=== PATIENT | male | born 1955 | race Caucasian/White ===

== ENCOUNTER 2018-11-30 14:32 | Emergency (ER) | payer BC, SELFPAY ==
[2018-11-30 14:36] VITALS: BP 147/83; PULSE 92; TEMP 36.6; O2SAT 100
--- NOTE | 2018-11-30 15:12 | ED.GENADUL_ITS ---
Discharge Plan Disposition Patient Disposition: HOME Condition: Stable Discharge Details Chief Complaint: Urinary Clinical Impression: Strain of left inguinal muscle, Strain of groin Primary Care Provider: Mariah Riddle ED Provider: Swati Rodriguez Home Meds and New Rx's Prescriptions: New methocarbamol 750 mg tablet 750 mg PO TID PRN (Reason: muscle spasm) Qty: 10 RF: 0 Continued imipramine HCl 50 mg Tablet 100 mg PO DAILY RF: 0 ibuprofen [Advil] 200 mg Tablet 800 mg PO BID PRNRF: 0 lisinopril 40 mg Tablet 40 mg PO DAILY RF: 0 Statin RF: 0 Discharge Instructions Instructions: Muscle Strain (ED), Groin Strain (ED) Additional Instructions: Alternate Tylenol and Motrin as needed and directed for pain. Alternate ice and heat to the affected area several times daily for 20 minutes at a time. Take the muscle relaxer for pain not relieved with Tylenol or Motrin. Follow-up with your primary care doctor in 3 days for reevaluation. Return immediately to the emergency department with any worsening or concerning symptoms. Discharge Data Discharge Date/Time-TO BE ENTERED AT DEPARTURE: 11/30/18 15:27 Discharge Physician: Swati Rodriguez Medical Decision Making 63-year-old male who presents with left groin pain for the past 4-5 days. Pain worse with movement and when moving from sitting to standing position. 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 He is also been receiving managed care director 2 times weekly for the past 3 weeks for a back injury. He denies fever, nausea, vomiting, abdominal pain, urinary or bowel symptoms, leg pain, swelling or weakness or numbness, rash, chest pain, shortness of breath, recent travel, recent surgery. Assessment of groin area notes a localized area of to have patient within the perineum/left inner groin behind scrotum which appears consistent with likely a groin strain. Scrotum normal to inspection. No left inguinal tenderness or pain. No rash, infection or trauma. Neurovascularly intact. Abdomen soft nontender. Patient instructed to continue NSAIDs, ice, heat and was sent home with muscle relaxers. He is instructed to follow-up with his primary care doctor for reevaluation and return here if worse. HPI General Mode of arrival: ambulatory . Date/Time Provider Initiated Documentation: 11/30/18 14:34 . Limitations to Documentation: no limitations . Information obtained by: patient . HPI Narrative: Pt is a 63yo M who presents to the ED w/ a c/o L groin pain x 4-5 days. Pt states he awoke with the pain when it started and it is worse with movement. Pt states the pain is mainly worse with hip flexion, moving from a sitting to standing position. 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 Pt states he has been taking 4 tabs of advil 2-3 times daily with some relief. He also states that he has been seeing a chiropractor 2-3 times weekly for the past 2 weeks and states he has adjusted his pelvis and recently gave him back exercises to do. He denies fever, nausea, vomiting, abdominal pain, bowel or bladder incontinence, saddle anesthesia, leg pain/weakness/numbness, chest pain, shortness of breath, recent travel, recent surgery, rash or urinary symptoms. Related Data Home Medications Medication Instructions Recorded Confirmed Statin 11/30/18 ibuprofen [Advil] 800 mg PO BID PRN 11/30/18 11/30/18 imipramine HCl 100 mg PO DAILY 11/30/18 11/30/18 lisinopril 40 mg PO DAILY 11/30/18 11/30/18 methocarbamol 750 mg PO TID PRN #10 tab 11/30/18 Previous Rx's Medication Instructions Recorded methocarbamol 750 mg PO TID PRN #10 tab 11/30/18 Allergies Allergy/AdvReac Type Severity Reaction Status Date / Time No Known Allergies Allergy Unverified 11/30/18 14:38 General Stated Complaint: Urinary AMY: 3 Review of Systems Review of Systems All systems reviewed & are unremarkable except as noted in HPI and below Constitutional Reports as per HPI, Denies chills and Denies fever(s) Eyes Denies blurry vision ENT Denies dizziness, Denies sore throat and Denies throat swelling Cardiovascular Denies chest pain and Denies dyspnea Respiratory Denies cough and Denies dyspnea Gastrointestinal Denies abdominal pain, Denies diarrhea and Denies vomiting Genitourinary Denies hematuria and Denies dysuria Musculoskeletal Denies back pain, Denies numbness and Reports other (L groin pain) Integumentary/Breasts Denies lesions and Denies rash Neurologic Denies dizziness, Denies focal weakness and Denies numbness Allergic/Immunologic Denies throat swelling PFS Medical History Anxiety (Chronic) Hypertension (Chronic) Prostate cancer (Chronic) Surgical History History of arthroscopy of knee (Acute) History of facial surgery (Acute) H/O hemorrhoidectomy (Chronic) History of prostatectomy (Chronic) Social History Smoking/Tobacco Use Status: Former Tobacco Use Alcohol Intake: current Alcohol Intake frequency: a few times a week Substance use type: does not use Do you feel safe at home: Yes Do you feel safe in your relationship?: Yes Exam Const General: cooperative, healthy appearing and no acute distress HENMT Head: normal to inspection Face and sinus: normal facial exam Eyes General: appearance normal, both eyes and all related structures EOM: EOM intact bilaterally Neck Neck: normal visual inspection and No submandibular swelling Lymphatic: no lymphadenopathy noted Chest Chest: normal inspection of the chest and no tenderness Resp Effort & Inspection: normal respiratory effort and able to speak in complete sentences Auscultation: clear to auscultation bilaterally Cardio Rate: regular rate Rhythm: regular rhythm GI Inspection: normal to inspection Palpation: soft, not firm, not rigid and nontender Auscultation: normal bowel sounds Male General Exam: Yes normal external exam Back/Spine/Pelvis Thoracic/Lumbar Spine: thoracic and lumbar spine normal to inspection Pelvis: no pain with anterior-posterior compression and other (notable localized tenderness to inner L groin/anterior perineum) Coccyx: other (notable localized tenderness to inner L groin/anterior perineum) Skin General skin exam: no rashes or lesions noted Neuro General: alert, awake, oriented x3, moves all extremities, no meningeal signs and no focal motor deficits Cognition: normal cognition Speech: speech normal Motor: muscle tone normal throughout and strength 5/5 throughout Sensory Exam: no sensory deficits noted Extrem General: normal to inspection, full ROM, normal capillary refill, no calf tenderness bilaterally and no edema Other: No tenderness to palpation of left outer groin within the inguinal region. Patient's tenderness is below and behind the scrotum deep within the inner left groin/perineum. There is a notable area of tenderness to a tendon within this area that is worse with flexion at the hip. Pain in left groin upon moving from sitting to standing position and when ambulating. Psych Appearance: grossly normal Mental Status: mental status grossly normal Speech and Movement: speech and movement normal Affect: normal affect Course Vital Signs Temperature 97.9 F 11/30/18 14:36 Pulse 92 H 11/30/18 14:36 Blood Pressure 147/83 H 11/30/18 14:36 Pulse Oximetry 100 11/30/18 14:36 Temperature 97.9 F 11/30/18 14:36 Temperature Source Skin 11/30/18 14:36 Pulse 92 H 11/30/18 14:36 Blood Pressure 147/83 H 11/30/18 14:36 Blood Pressure Position Sitting 11/30/18 14:36 Pulse Oximetry 100 11/30/18 14:36 Oxygen Delivery Method Room Air 11/30/18 14:36 Oxygen Flow Rate 0 11/30/18 14:36 Pain Level 5 11/30/18 14:36
[2018-11-30 15:25] VITALS: BP 147/83; PULSE 92; RESP 20; TEMP 36.6; O2SAT 100
== END 2018-11-30 15:27 | disposition home or self-care (01) ==
PROVIDERS: Emergency Provider Physician Assistant; PCP Nurse Practitioner
DX: S76.212A Strain of adductor muscle, fascia and tendon of left thigh, initial encounter (principal); X58.XXXA Exposure to other specified factors, initial encounter
CPT/HCPCS: 99283

== ENCOUNTER 2020-04-18 11:31 | Emergency (ER) | payer BC, SELFPAY ==
[2020-04-18 11:36] VITALS: BP 150/74; PULSE 81; RESP 18; TEMP 37.1; O2SAT 98
--- NOTE | 2020-04-18 12:04 | ED.GENADUL_ITS ---
Discharge Plan Disposition Patient Disposition: HOME Condition: Stable Discharge Details Chief Complaint: Orthopedic Clinical Impression: Foreign body finger Primary Care Provider: Mariah Riddle ED Provider: Danitza Lloyd Home Meds and New Rx's Prescriptions: New cephalexin 500 mg tablet 500 mg PO BID 5 Days Qty: 10 RF: 0 No Action imipramine HCl 50 mg Tablet 100 mg PO DAILY RF: 0 ibuprofen [Advil] 200 mg Tablet 800 mg PO BID PRNRF: 0 lisinopril 40 mg Tablet 40 mg PO DAILY RF: 0 Statin RF: 0 Discharge Instructions Instructions: Soft Tissue Foreign Body (ED), Puncture Wound (ED) Additional Instructions: A wooden foreign body sliver was removed from your right little finger. I ex pect that it was fully removed however there is a chance that small little pieces of wood are still embedded in the soft tissues. Those will eventually work themselves out. Wash puncture wounds with running soap and water daily keep clean and dry. Take antibiotic as directed. Return for any increased redness, red streaks up your hand, fever or drainage or any concerns. Numbing medicine will wear off a couple hours. Please take Tylenol or Ibuprofen with food every 4-6 hours as needed for pain and swelling. Follow up with primary care provider in 3-5 days. Return to ED sooner if any worsening or concerns. Increase oral fluids. Referrals: Mariah Riddle [Primary Care Provider] - Medical Decision Making 64-year-old male presents to the ER chief complaint of foreign body embedded in his right fifth digit. This occurred approximate 1 hour prior to arrival while patient was working on some molding. He has a splinter noted sticking of the right little finger. There is a small venous bleed which is controlled with pressure. He does report increased tenderness. Unknown last tetanus shot. He has a past medical history of hypertension. Imaging obtained to rule out radiopaque foreign body. There is a small shadow noted. Patient received Tdap injection due to unknown tetanus status. Area was anesthetized locally with 1% lidocaine, patient tolerated well. Foreign body was removed with hemostat, suspected full removal of splinter. MICHELL wound and silver measuring approximately 1.3 cm in length removed. Patient has full range of motion noted after procedure. Puncture wounds cleaned with surgical scrub chlorhexidine and gauze and nonadherent dressing applied. Discussed home care with patient, verbalized understanding. This text was generated using [employer]ation system, please disregard any oddities of phrase or misspellings. HPI General Mode of arrival: ambulatory . Date/Time Provider Initiated Documentation: 04/18/20 11:38 . Limitations to Documentation: no limitations . Information obtained by: patient . HPI Narrative: 64-year-old male presents to the ER chief complaint of foreign body embedded in his right fifth digit. This occurred approximate 1 hour prior to arrival while patient was working on some molding. He has a splinter noted sticking of the right little finger. There is a small venous bleed which is controlled with pressure. He does report increased tenderness. Unknown last tetanus shot. He has a past medical history of hypertension. Related Data Home Medications Medication Instructions Recorded Confirmed Statin 11/30/18 ibuprofen [Advil] 800 mg PO BID PRN 11/30/18 04/18/20 imipramine HCl 100 mg PO DAILY 11/30/18 04/18/20 lisinopril 40 mg PO DAILY 11/30/18 04/18/20 cephalexin 500 mg PO BID 5 Days #10 tab 04/18/20 Previous Rx's Medication Instructions Recorded cephalexin 500 mg PO BID 5 Days #10 tab 04/18/20 Allergies Allergy/AdvReac Type Severity Reaction Status Date / Time No Known Allergies Allergy Unverified 11/30/18 14:38 General Stated Complaint: Orthopedic AMY: 4 Review of Systems All systems reviewed & are unremarkable except as noted in HPI and below Integumentary/Breasts Skin/Breast: Reports wounds (Foreign body right little finger) PFSH Medical History Anxiety (Chronic) Hypertension (Chronic) Prostate cancer (Chronic) Surgical History H/O hemorrhoidectomy (Chronic) History of arthroscopy of knee (Acute) History of facial surgery (Acute) History of prostatectomy (Chronic) Social History Smoking/Tobacco Use Status: Former Tobacco Use Alcohol Intake: current Alcohol Intake frequency: a few times a week Substance use type: does not use Do you feel safe at home: Yes Do you feel safe in your relationship?: Yes Exam Const General: cooperative, healthy appearing, comfortable, well developed and well groomed Nutritional Appearance: average body habitus Orientation: alert, awake and oriented x3 Chest Chest: normal inspection of the chest Resp Effort & Inspection: normal respiratory effort and able to speak in complete sentences Auscultation: clear to auscultation bilaterally Cardio Rate: regular rate Rhythm: regular rhythm Extrem Right upper extremity: hand Details: foreign body Location: of the 5th digit Location: at the MCP joint (Through the base of the digit) and on the palmar aspect Hand/finger images: 1. Wooden splinter noted Course Vital Signs Vital signs: Vital Signs Temperature 37.1 C 04/18/20 11:36 Pulse 81 04/18/20 11:36 Respiratory Rate 18 04/18/20 11:36 Blood Pressure 150/74 H 04/18/20 11:36 Pulse Oximetry 98 04/18/20 11:36 Temperature 37.1 C 04/18/20 11:36 Temperature Source Temporal Artery Scan 04/18/20 11:36 Pulse 81 04/18/20 11:36 Respiratory Rate 18 04/18/20 11:36 Respiratory Effort 04/18/20 11:38 Respiratory Depth Normal 04/18/20 11:38 Blood Pressure 150/74 H 04/18/20 11:36 Blood Pressure Position Sitting 04/18/20 11:36 Pulse Oximetry 98 04/18/20 11:36 Oxygen Delivery Method Room Air 04/18/20 11:36 Oxygen Flow Rate 0 04/18/20 11:36 Pain Level 0 04/18/20 11:36 Procedures Foreign Body Removal Time Out Performed: no Site: right and hand (Base of right little finger) Description of foreign body: other (Wooden sliver) Technique: removal with forceps (Hemostat) and other (Partial removal with first attempt, procedure stopped due to patient's complaint of pain, full removal with 2nd attempt) Confirmed by:: direct visualization and radiograph Complications: pain Post-procedure exam: awake, alert and normal BP Neurovascular: normal distal pulse, normal capillary fill, distal motor function normal, no signs of compartment syndrome and other (anesthesized with Lidocaine 1% without epi)
--- NOTE | 2020-04-18 12:19 | DI.RAD_ITS ---
EXAM: XR FINGER RT LITTLE CLINICAL HISTORY: eval foreign body. TECHNIQUE: 2D digital imaging was performed. COMPARISON: No exams were available for comparison FINDINGS: BONES: No acute fracture is present. No bony destructive lesion is seen. JOINTS: No dislocation present. SOFT TISSUE: There is a tiny 2 mm density in the soft tissues at the tip of the finger seen on the la teral view. This may represent a foreign body. Please correlate with the clinical history. IMPRESSION: 2 mm density seen in the soft tissues at the tip of the finger on the lateral view which may represen t a small foreign body. DATA REPOSITORY: RADIATION DOSE DELIVERED:
== END 2020-04-18 12:45 | disposition home or self-care (01) ==
PROVIDERS: Emergency Provider Registered Nurse Emergency; PCP Nurse Practitioner
DX: S61.246A Puncture wound with foreign body of right little finger without damage to nail, initial encounter (principal); W45.8XXA Other foreign body or object entering through skin, initial encounter; Y99.0 Civilian activity done for income or pay; I10 Essential (primary) hypertension
CPT/HCPCS: 90471; 99284; 73140; 99283

== ENCOUNTER 2020-11-07 15:07 | Outpatient (REF) | payer BC, SELFPAY ==
[2020-11-08 15:14] LABS: COVID-19 RT-PCR UVMMC Result Negative (Negative)
== END 2020-11-07 15:08 | disposition home or self-care (01) ==
LOC: NCHCN 15:07
PROVIDERS: PCP Nurse Practitioner; Visit Provider Family Medicine
DX: Z20.822 Contact with and (suspected) exposure to COVID-19 (principal)
CPT/HCPCS: U0003

== ENCOUNTER 2021-04-28 19:33 | Outpatient (REF) | payer BC, SELFPAY ==
[2021-04-28 20:53] LABS: Source SYNOVIAL
[2021-04-28 20:57] LABS: Crystals (BF) No Crystals seen
[2021-05-02 10:29] LABS: Fluid Type SYNOVIAL; Protein,Total, BF 4.5 g/dL
== END 2021-04-28 19:34 | disposition home or self-care (01) ==
LOC: NCHCN 19:33
PROVIDERS: Family Medicine; PCP Nurse Practitioner; Visit Provider Physician Assistant
DX: M25.461 Effusion, right knee (principal)
CPT/HCPCS: 83615; 84157; 85025; 89060

== ENCOUNTER 2021-05-01 02:33 | Outpatient (CLI) | payer BC, SELFPAY ==
--- NOTE | 2021-05-01 | DI.RAD_ITS ---
Exam(s) XR KNEE RT 3V AP,LAT,AMARA EXAM: XR KNEE RT 3V AP,LAT,AMARA CLINICAL HISTORY: RT KNEE EFFUSION, M25.461. TECHNIQUE: 2D digital imaging was performed. COMPARISON: No exams were available for comparison FINDINGS: BONES: No acute fracture is present. No bony destructive lesion is seen. JOINTS: The knee is normally aligned. Small joint effusion is seen. Chondrocalcinosis seen in the men isci. Mild periarticular spurring. Mild narrowing medial femoral tibial joint space. SOFT TISSUE: Normal. IMPRESSION: Mild degenerative changes and chondrocalcinosis. Small joint effusion. DATA REPOSITORY: RADIATION DOSE DELIVERED:
== END 2021-05-01 02:53 ==
PROVIDERS: PCP Nurse Practitioner; Visit Provider Family Medicine
DX: M25.461 Effusion, right knee (principal); M11.261 Other chondrocalcinosis, right knee
CPT/HCPCS: 73562

== ENCOUNTER 2022-03-14 11:17 | Emergency (ER) | payer BC, SELFPAY ==
[2022-03-14] VITALS (7 sets, daily range): BP systolic 162–164; BP diastolic 80–81; PULSE 85–96; RESP 14–20; TEMP 37; O2SAT 95–98
--- NOTE | 2022-03-14 11:15 | RT.EKG_ITS ---
APPROVED REPORT Exam: Resting ECG Reason for Exam: dizzy Patient Location: E HR:90 bpm ECG Measurements Heart Rate 90 AXIS MS 184 P 46 QRSd 109 QRS -12 QT 385 T -15 QTc 471 Conclusion Sinus rhythm.. Inferio Q >35mS, II III aVF
[2022-03-14] MEDS: Normal Saline 1,000 ML 1000 ML IV ×2 (11:48→14:45)
[2022-03-14 11:51] LABS: Bilirubin Negative (Negative); Blood Negative (Negative); Clarity Clear (Clear); Glucose Negative (Negative); Ketones Trace mg/dL (Negative); Leukocyte Esterase Negative (Negative); Nitrite Negative (Negative); pH 6.5 (5-8)
--- NOTE | 2022-03-14 11:54 | ED.GENADUL_ITS ---
Discharge Plan Disposition Patient Disposition: HOME Condition: Improving Discharge Details Clinical Impression: Near syncope Primary Care Provider: Mariah Riddle ED Provider: Cedric Govea Home Meds and New Rx's Prescriptions: Continued imipramine HCl 50 mg Tablet 100 mg PO DAILY ibuprofen [Advil] 200 mg Tablet 800 mg PO BID PRN lisinopril 40 mg Tablet 40 mg PO DAILY Statin Discharge Instructions Instructions: Near Syncope (ED) Additional Instructions: Work-up in the ER does not reveal any obvious emergent process and after observation and receiving IV fluid you are now asymptomatic. Please watch for new or worsening symptoms and return to the ER for any concerns. Otherwise I would like you to contact your primary care provider tomorrow to discuss your ER visit and need for outpatient reevaluation Medical Decision Making This is a 66-year-old gentleman, past sickle history of hypertension, who presents to the ER for evaluation of a near syncopal episode when working out side today in the heat and going into a hot saud potty. Patient states that the morning was more stressful than usual, he had an incident with a client and from staff. Patient also reports a history of IBS, reports lower abdominal cramping but has not been able to have a bowel movement. He denies any cardiac history. Patient reports that upon presentation to the ER he is already feeling greatly improved. Given his age and presentation, will initiate cardiac work- up including a delta troponin. He is neurologically intact, I see no clear indication for CT imaging of the head. We will also provide IV fluid. Patient was observed ambulating steadily to the restroom multiple times, he reports having multiple bowel movements while here in the ER and now has no abdominal cramping whatsoever. He reports this is very typical of his IBS. Patient received a total of 2 L IV fluid, reports that he is asymptomatic. Initial laboratory values are unremarkable for any obvious emergent process. Chest x-ray unremarkable Discussed work-up with patient. He remains asymptomatic and agreeable to awaiting a delta troponin. Delta troponin remains less than 50. Standard discharge and return precautions were provided. Patient understands, is agreeable to this plan, and has no additional questions or concerns upon discharge. This documentation was generated using [employer] system, please disregard any oddities of phrase or misspellings. Medical Records Medical records reviewed: Yes I reviewed the patient's medical records. Imaging Data Radiologic Study: Attestation: I personally reviewed and interpreted this imaging study as follows: Imaging: X-Ray Radiologist's impression: Exam(s) XR CHEST 2V PA LATERAL EXAM: XR CHEST 2V PA LATERAL CLINICAL HISTORY: near syncope TECHNIQUE: 2D digital imaging was performed of the chest. Two images were obtained. PA and lateral views were obtained. COMPARISON: No exams were available for comparison FINDINGS: MEDIASTINUM: Normal. HEART: Normal. PULMONARY VASCULATURE: Normal. LUNGS: Clear. PLEURAL SPACE: No pleural effusion or pneumothorax. BONE:Within normal limits for the patient's age. OTHER FINDINGS:Normal. IMPRESSION: No acute pulmonary findings. Lab Data Lab results reviewed: Yes I reviewed the patient's lab results. Labs: Laboratory Tests Range/Units 03/14/22 03/14/22 03/14/22 11:40 11:48 11:48 WBC (4.4-10.8) 10^3/uL RBC (4.36-5.78) 10^6/uL Hgb (13.5-17.5) g/dL Hct (40.0-50.0) % MCV (80-95) fL MCH (27.0-33.0) pg MCHC (32.0-36.0) % RDW (11.8-14.1) % Plt Count (130-400) 10^3/uL MPV (8.0-11.0) fL Immature Gran % Neutrophils % Lymphocytes % Monocytes % Eosinophils % Basophils % Nucleated RBC % (0.0-0.3) % Absolute Neutrophils (1.2-6.7) 10^3/uL Absolute Lymphocytes (1.2-3.4) 10^3/uL Absolute Monocytes (0.1-0.8) 10^3/uL Absolute Eosinophils (0.0-0.7) 10^3/uL Absolute Basophils (0.0-0.2) 10^3/uL Sodium (136-145) mmol/L 140 Cancelled Potassium (3.5-5.1) mmol/L 4.0 Cancelled Chloride (98-107) mmol/L 105 Cancelled Carbon Dioxide (21.0-32.0) mmol/L 27.7 Cancelled Anion Gap (3-11) mmol/L 7.3 Cancelled BUN (7-18) mg/dL 27 H Cancelled Creatinine (0.70-1.30) mg/dL 1.3 Cancelled Estimated GFR/1.73 m2 (mL/min/1.73m2) 55.40 Cancelled Glucose (74-106) mg/dL 116 H Cancelled Calcium (8.5-10.1) mg/dL 8.9 Cancelled Magnesium (1.8-2.4) mg/dL 1.9 Total Bilirubin (0.2-1.0) mg/dL 0.5 Cancelled AST (15-37) U/L 24 Cancelled ALT (16-63) U/L 38 Cancelled Alkaline Phosphatase (46-116) U/L 80 Cancelled Troponin I (<or=60) ng/L < 50 Total Protein (6.4-8.2) g/dL 7.1 Cancelled Albumin (3.4-5.0) g/dL 4.2 Cancelled TSH (0.36-3.74) uIU/mL 2.25 Urine Color (Yellow) Yellow Urine Clarity (Clear) Clear Urine pH (5-8) 6.5 Ur Specific [place] (1.005-1.025) 1.020 Urine Protein (Negative) mg/dL Trace H Urine Ketones (Negative) mg/dL Trace H Urine Blood (Negative) Negative Urine Nitrite (Negative) Negative Urine Bilirubin (Negative) Negative Urine Urobilinogen (Up TO 0.2) EU/dL 1.0 H Ur Leukocyte Esterase (Negative) Negative Urine RBC (0-2) HPF Negative Urine WBC (0-5) HPF Negative Ur Epithelial Cells (Negative) HPF Rare Urine Crystals (Negative) HPF Negative Urine Bacteria (Negative) HPF Negative Urine Casts (Negative) LPF 0-2 Hyaline Urine Mucus (Negative) Trace Ur Culture Indicated? No Urine Glucose (Negative) mg/dL Negative COVID-19 Source SARS-CoV-2 (PCR) (Negative) Range/Units 03/14/22 03/14/22 03/14/22 11:48 12:00 14:42 WBC (4.4-10.8) 10^3/uL 6.76 RBC (4.36-5.78) 10^6/uL 4.60 Hgb (13.5-17.5) g/dL 13.9 Hct (40.0-50.0) % 42.8 MCV (80-95) fL 93 MCH (27.0-33.0) pg 30.2 MCHC (32.0-36.0) % 32.5 RDW (11.8-14.1) % 13.2 Plt Count (130-400) 10^3/uL 201 MPV (8.0-11.0) fL 9.5 Immature Gran % 0.3 Neutrophils % 53.5 Lymphocytes % 29.4 Monocytes % 11.8 Eosinophils % 3.7 Basophils % 1.3 Nucleated RBC % (0.0-0.3) % 0.0 Absolute Neutrophils (1.2-6.7) 10^3/uL 3.61 Absolute Lymphocytes (1.2-3.4) 10^3/uL 1.99 Absolute Monocytes (0.1-0.8) 10^3/uL 0.80 Absolute Eosinophils (0.0-0.7) 10^3/uL 0.25 Absolute Basophils (0.0-0.2) 10^3/uL 0.09 Sodium (136-145) mmol/L Potassium (3.5-5.1) mmol/L Chloride (98-107) mmol/L Carbon Dioxide (21.0-32.0) mmol/L Anion Gap (3-11) mmol/L BUN (7-18) mg/dL Creatinine (0.70-1.30) mg/dL Estimated GFR/1.73 m2 (mL/min/1.73m2) Glucose (74-106) mg/dL Calcium (8.5-10.1) mg/dL Magnesium (1.8-2.4) mg/dL Total Bilirubin (0.2-1.0) mg/dL AST (15-37) U/L ALT (16-63) U/L Alkaline Phosphatase (46-116) U/L Troponin I (<or=60) ng/L < 50 Total Protein (6.4-8.2) g/dL Albumin (3.4-5.0) g/dL TSH (0.36-3.74) uIU/mL Urine Color (Yellow) Urine Clarity (Clear) Urine pH (5-8) Ur Specific [place] (1.005-1.025) Urine Protein (Negative) mg/dL Urine Ketones (Negative) mg/dL Urine Blood (Negative) Urine Nitrite (Negative) Urine Bilirubin (Negative) Urine Urobilinogen (Up TO 0.2) EU/dL Ur Leukocyte Esterase (Negative) Urine RBC (0-2) HPF Urine WBC (0-5) HPF Ur Epithelial Cells (Negative) HPF Urine Crystals (Negative) HPF Urine Bacteria (Negative) HPF Urine Casts (Negative) LPF Urine Mucus (Negative) Ur Culture Indicated? Urine Glucose (Negative) mg/dL COVID-19 Source Nasal/Nares SARS-CoV-2 (PCR) (Negative) Negative ECG Data Attestation: I personally reviewed and interpreted this ECG (s) as follows: Interpretation: Please see official report by Dr. Ruiz. Sinus rhythm, ventricular of 98. Inferior Q waves, no STEMI HPI General Mode of arrival: ambulatory . Date/Time Provider Initiated Documentation: 03/14/22 11:19 . Limitations to Documentation: no limitations . Information obtained by: patient . HPI Narrative: This is a 66-year-old gentleman, reports past medical history of hypertension, drinks 2 beers nightly, presents to the ER reporting feeling a warm, like he could pass out, and mild nausea about 1 hour ago. Patient states that he was working outside in the heat, sun, went to use the [email or web address] and it was even more hot and there. Patient reports a history of IBS and feels as though he needs to have a bowel movement, mild lower abdominal cramping, had a normal bowel movement yesterday. He denies headache, visual changes, neck pain, chest pain, shortness of breath, vomiting, change in bowel or bladder function, numbness, tingling, weakness, skin rash. He denies any cardiac history. Related Data Home Medications Medication Instructions Recorded Confirmed Statin 11/30/18 01/01/22 ibuprofen 200 mg tablet (Advil) 800 mg PO BID PRN 11/30/18 03/14/22 imipramine HCl 50 mg tablet 100 mg PO DAILY 11/30/18 03/14/22 lisinopril 40 mg tablet 40 mg PO DAILY 11/30/18 03/14/22 Allergies Allergy/AdvReac Type Severity Reaction Status Date / Time No Known Allergies Allergy Unverified 03/14/22 11:29 General Stated Complaint: Dizzy/Sync AMY: 3 Review of Systems Constitutional Constitutional: Denies fever(s), Denies headache(s) and Denies weakness Eyes Eyes: Denies change in vision ENT Ears, Nose, Mouth, and Throat: Denies headache(s) and Denies neck pain Cardiovascular Cardiovascular: Denies chest pain and Denies dyspnea Respiratory Respiratory: Denies cough and Denies dyspnea Gastrointestinal Gastrointestinal: Reports abdominal pain, Reports nausea and Denies vomiting Genitourinary Genitourinary: Denies dysuria Musculoskeletal Musculoskeletal: Denies back pain, Denies neck pain, Denies numbness and Denies tingling Integumentary/Breasts Skin/Breast: Denies erythema Neurologic Neurologic: Denies headache(s), Denies numbness, Denies tingling and Denies weakness Hematologic/Lymphatic Hematologic/Lymphatic: Denies easy bleeding and Denies easy bruising PFSH All Active Problems (Updated 03/14/22 @ 15:38 by BRYAN Monroy) Near syncope (Acute) Degenerative joint disease of right knee (Chronic) Most recent Depo-Medrol injection: 01/01/2022 Reports history of Depo-Medrol as well as viscosupplementation [address]; last injection 08/25/2021 Medical History (Updated 03/14/22 @ 15:38 by BRYAN Monroy) Anxiety Hypertension Prostate cancer Surgical History H/O hemorrhoidectomy History of arthroscopy of knee History of facial surgery History of prostatectomy Social History Smoking/Tobacco Use Status: Former Tobacco Use Smoking risk assessment performed?: Yes Alcohol Intake: current Alcohol Intake frequency: a few times a week Substance use type: does not use Details: quit smoking 40+ years ago Do you feel safe at home: Yes Do you feel safe in your relationship?: Yes Exam Const General: cooperative, healthy appearing, comfortable and no acute distress Orientation: alert, awake and oriented x3 HENMT Head: normal to inspection, normocephalic and atraumatic Face and sinus: normal facial exam Mouth: oral mucosae normal and moist mucous membranes Eyes General: appearance normal, both eyes and all related structures Conjunctivae: conjunctivae normal Neck Neck: normal visual inspection, full ROM, no meningeal signs, trachea midline and supple Resp Effort & Inspection: normal respiratory effort and able to speak in complete sentences Auscultation: clear to auscultation bilaterally Cardio Rate: regular rate Rhythm: regular rhythm GI Inspection: normal to inspection Palpation: soft, not firm, no guarding, no pulsatile masses and nontender Auscultation: normal bowel sounds Back/Spine/Pelvis Back: no CVA tenderness and No back tenderness Skin General skin exam: no rashes or lesions noted Neuro General: patient alert, patient awake, patient oriented x3, moves all extremities and no focal motor deficits Cranial Nerves: CN's II-XI intact bilaterally Cognition: normal cognition Speech: speech normal Gait: normal gait Motor: muscle tone normal throughout Sensory Exam: no sensory deficits noted Extrem General: normal to inspection, full ROM, capillary refill normal, no pedal edema and no calf tenderness Psych Appearance: grossly normal Mental Status: mental status grossly normal Course Vital Signs Vital signs: Vital Signs Temperature 37 C 03/14/22 11:19 Pulse 91 H 03/14/22 11:19 Respiratory Rate 17 03/14/22 11:19 Blood Pressure 162/81 H 03/14/22 11:19 Pulse Oximetry 96 03/14/22 11:19 Temperature 37 C 03/14/22 11:19 Temperature Source Skin 03/14/22 11:19 Pulse 91 H 03/14/22 11:19 Respiratory Rate 17 03/14/22 11:19 Respiratory Effort 03/14/22 11:33 Blood Pressure 162/81 H 03/14/22 11:19 Pulse Oximetry 96 03/14/22 11:19 Oxygen Delivery Method Room Air 03/14/22 11:19 Oxygen Flow Rate 0 03/14/22 11:19 Pain Level 4 03/14/22 11:19 Lab/Test Results Lab/Test Results: Laboratory Tests Range/Units 03/14/22 11:40 Urine Color (Yellow) Yellow Urine Clarity (Clear) Clear Urine pH (5-8) 6.5 Ur Specific [place] (1.005-1.025) 1.020 Urine Protein (Negative) mg/dL Trace H Urine Ketones (Negative) mg/dL Trace H Urine Blood (Negative) Negative Urine Nitrite (Negative) Negative Urine Bilirubin (Negative) Negative Urine Urobilinogen (Up TO 0.2) EU/dL 1.0 H Ur Leukocyte Esterase (Negative) Negative Urine Glucose (Negative) mg/dL Negative PAWSS Have you Been Recently Intoxicated or Drunk Within the Last 30 days?: No Have you Ever Experienced Previous Episodes of Alcohol Withdrawal?: No Have you ever Experienced Withdrawal Seizures?: No Have you ever Experienced Delirium Tremens(DT)s?: No Have you ever undergone Alcohol Rehabilitation Treatment (i.e, inpt ot outpatient treatment programs)?: No Have you ever Experienced Blackouts?: No Have you ever Combined Alcohol with other Downers within the last 90 days?: No Have you ever Combined Alcohol with any other Substance of Abuse during the last 90 days?: No Positive Blood Alcohol level on Presentation? [PCS.BAL]: No Evidence of Increased Autonomic Activity (i.e. HR>120, tremor, sweating, agitation, nausea)?: No Result: 0
[2022-03-14 11:56] LABS: Bacteria Negative HPF (Negative); Crystals Negative HPF (Negative); Epithelial Cells Rare HPF (Negative); RBC Negative HPF (0-2); WBC Negative HPF (0-5)
[2022-03-14 11:57] LABS: Abs Immature Grans 0.02 10^3/uL (0.0-0.06); Absolute Basophil Count 0.09 10^3/uL (0.0-0.2); Absolute Eosinophil Count 0.25 10^3/uL (0.0-0.7); Absolute Lymphocyte Count 1.99 10^3/uL (1.2-3.4); Absolute Neutrophil Count 3.61 10^3/uL (1.2-6.7); Basophils % 1.3; Eosinophils % 3.7; HCT 42.8 % (40.0-50.0); HGB 13.9 g/dL (13.5-17.5); Immature Grans % 0.3; Lymphocytes % 29.4; MCH 30.2 pg (27.0-33.0); MCHC 32.5 % (32.0-36.0); MCV 93 fL (80-95); MPV 9.5 fL (8.0-11.0); Monocytes % 11.8; Neutrophils % 53.5; Platelet Count 201 10^3/uL (130-400); RDW 13.2 % (11.8-14.1); RDW-SD 44.9 fL; WBC 6.76 10^3/uL (4.4-10.8)
[2022-03-14 11:57] LABS: C & S Indicated? No; Casts 0-2 Hyaline LPF (Negative); Mucus Trace (Negative)
[2022-03-14 12:02] LABS: Source Nasal/Nares
[2022-03-14 12:24] LABS: ALT 38 U/L (16-63); AST 24 U/L (15-37); Albumin 4.2 g/dL (3.4-5.0); Alkaline Phosphatase 80 U/L (46-116); Anion Gap 7.3 mmol/L (3-11); BUN 27 mg/dL (7-18); Bilirubin, Total 0.5 mg/dL (0.2-1.0); CO2 27.7 mmol/L (21.0-32.0); CREATININE 1.3 mg/dL (0.70-1.30); Calcium 8.9 mg/dL (8.5-10.1); Chloride 105 mmol/L (98-107); Glucose 116 mg/dL (74-106); Magnesium 1.9 mg/dL (1.8-2.4); Sodium 140 mmol/L (136-145); TSH 2.25 uIU/mL (0.36-3.74); Total Protein 7.1 g/dL (6.4-8.2); Troponin I < 50 ng/L (<or=60)
[2022-03-14 12:52] LABS: COVID-19 PCR Negative (Negative)
--- NOTE | 2022-03-14 13:04 | DI.RAD_ITS ---
Exam(s) XR CHEST 2V PA LATERAL EXAM: XR CHEST 2V PA LATERAL CLINICAL HISTORY: near syncope TECHNIQUE: 2D digital imaging was performed of the chest. Two images were obtained. PA and lateral views were obtained. COMPARISON: No exams were available for comparison FINDINGS: MEDIASTINUM: Normal. HEART: Normal. PULMONARY VASCULATURE: Normal. LUNGS: Clear. PLEURAL SPACE: No pleural effusion or pneumothorax. BONE:Within normal limits for the patient's age. OTHER FINDINGS:Normal. IMPRESSION: No acute pulmonary findings. DATA REPOSITORY: RADIATION DOSE DELIVERED:
[2022-03-14 15:12] LABS: Troponin I < 50 ng/L (<or=60)
== END 2022-03-14 15:47 | disposition home or self-care (01) ==
PROVIDERS: Emergency Provider Physician Assistant; PCP Nurse Practitioner
DX: R55 Syncope and collapse (principal); I10 Essential (primary) hypertension; Z20.822 Contact with and (suspected) exposure to COVID-19; Z85.46 Personal history of malignant neoplasm of prostate; Z87.891 Personal history of nicotine dependence; Z79.899 Other long term (current) drug therapy
CPT/HCPCS: 80053; 87635; 93005; 96360; 96361; 99284; 71046; 81003; 81015; 83735; 84443; 84484; 85025; 93010

== ENCOUNTER 2022-03-15 09:01 | Emergency (ER) | payer BC, SELFPAY ==
[2022-03-15 09:04] VITALS: BP 159/89; PULSE 97; RESP 18; TEMP 37.2; O2SAT 99
[2022-03-15 09:35] LABS: Abs Immature Grans 0.02 10^3/uL (0.0-0.06); Absolute Basophil Count 0.08 10^3/uL (0.0-0.2); Absolute Eosinophil Count 0.16 10^3/uL (0.0-0.7); Absolute Monocyte Count 0.59 10^3/uL (0.1-0.8); Absolute Neutrophil Count 3.94 10^3/uL (1.2-6.7); Basophils % 1.3; Eosinophils % 2.7; HCT 41.3 % (40.0-50.0); HGB 13.5 g/dL (13.5-17.5); Immature Grans % 0.3; MCH 30.5 pg (27.0-33.0); MCHC 32.7 % (32.0-36.0); MCV 93 fL (80-95); MPV 9.4 fL (8.0-11.0); Monocytes % 9.8; Neutrophils % 65.9; Platelet Count 162 10^3/uL (130-400); RBC 4.42 10^6/uL (4.36-5.78); RDW 13.2 % (11.8-14.1); RDW-SD 45.3 fL; WBC 5.99 10^3/uL (4.4-10.8)
[2022-03-15] MEDS: Normal Saline 1,000 ML 1000 ML IV (09:37)
[2022-03-15 09:50] LABS: ALT 34 U/L (16-63); AST 22 U/L (15-37); Albumin 3.9 g/dL (3.4-5.0); Alkaline Phosphatase 70 U/L (46-116); Anion Gap 9.3 mmol/L (3-11); BUN 23 mg/dL (7-18); Bilirubin, Total 0.5 mg/dL (0.2-1.0); CO2 24.7 mmol/L (21.0-32.0); CREATININE 1.2 mg/dL (0.70-1.30); Calcium 8.7 mg/dL (8.5-10.1); Chloride 105 mmol/L (98-107); Glucose 95 mg/dL (74-106); Lipase 58 U/L (73-393); Potassium 3.9 mmol/L (3.5-5.1); Sodium 139 mmol/L (136-145); Total Protein 6.7 g/dL (6.4-8.2)
--- NOTE | 2022-03-15 09:56 | DI.CT_ITS ---
Exam(s) CT ABDOMEN PELVIS WO EXAM: CT ABDOMEN PELVIS WO CLINICAL HISTORY: bloody stools, worsening abdominal pain. TECHNIQUE: Imaging Protocol: Axial computed tomography images with coronal and sagittal reformatted images were created and reviewed. COMPARISON: CT RENAL COLIC WO CONTRAST from 03/15/2012 FINDINGS: ABDOMEN: Lung Bases: Stable 3 mm left lingular nodule. No follow-up is recommended. Liver: Normal density. No measurable mass. Gallbladder and biliary tract: Cholelithiasis. No biliary ductal dilatation. Pancreas: Normal density, no abnormal calcifications or inflammatory process. Spleen: Normal. Kidneys: Normal size, contour and axis.No radiodense stones or obstructive uropathy. No masses seen. Adrenal glands: No mass is seen. Lymph nodes: Within normal limits. Abdominal Aorta: Abdominal portion non-dilated. Atherosclerosis is present. PELVIS: Bladder:Symmetric distention, no gross wall thickening. Bowel: No evidence of obstruction. There is wall thickening seen from the distal transverse colon th rough the descending colon and into the proximal sigmoid colon. Pericolonic inflammatory changes are present. No diverticula are seen in this region. The findings are suspicious for an inflammatory/i nfectious colitis. Appendix is unremarkable. Peritoneal cavity: There is a small amount of pelvic ascites. No free air. Reproductive organs: The patient appears status post prostatectomy. Bones: Within normal limits. There is unilateral right L5 spondylolysis and grade 1 spondylolisthesis of L5 on S1. There is a right convex curvature of the lumbar spine. Soft Tissues: Small bilateral fat containing inguinal hernia are present. IMPRESSION: 1. Findings of infectious or inflammatory colitis involving the transverse, descending and proximal s igmoid colon. No abscess or free air. 2. Small amount of pelvic ascites. 3. Cholelithiasis but no evidence of biliary ductal dilatation. 4. Results of this exam have been verbally communicated with provider. RADIATION DOSE DELIVERED: 925.05mGy.cm Total DLP DATA REPOSITORY: All CT scans at this facility are submitted to the National Radiology Data Registry (NRDR) Dose Index Registry (DIR) with the [employer] ([employer]). RADIATION OPTIMIZATION: All CT scans at this facility use at least one of these dose optimization te chniques: automated exposure control; mA and/or kV adjustment per patient size (includes targeted exa ms where dose is matched to clinical indication); or iterative reconstruction.
--- NOTE | 2022-03-15 10:47 | W.ED.GENAD ---
Discharge Plan Disposition Patient Disposition: HOME Condition: Stable Discharge Details Clinical Impression: Colitis Primary Care Provider: Mariah Riddle ED Provider: Elizabeth Bal Home Meds and New Rx's Prescriptions: New azithromycin 500 mg tablet 500 mg PO DAILY 3 Days Qty: 3 0RF Continued imipramine HCl 50 mg Tablet 100 mg PO HS ibuprofen [Advil] 200 mg Tablet 800 mg PO BID PRN lisinopril 40 mg Tablet 40 mg PO DAILY atorvastatin 10 mg Tablet PO DAILY pantoprazole [Protonix] 40 mg Tablet,Delayed Release (Dr/Ec) 40 mg PO DAILY mirtazapine 45 mg Tablet 45 mg PO DAILY Discharge Instructions Additional Instructions: Clear liquid diet, this will help with bowel rest, juice, popsicles, chicken broth, Jell-O, robyn christy for 24 hours After that you may increase bland diet, bananas, rice, applesauce, toast Take a probiotic Take antibiotic as prescribed. Should you have persistent bloody stool after completing antibiotic, you must be reassessed by her primary care physician or return to the emergency department for reassessment Referrals: Mariah Riddle [Primary Care Provider] - Discharge Data Discharge Date/Time-TO BE ENTERED AT DEPARTURE: 03/15/22 11:[address] scan shows evidence of colitis, diagnostic labs are reassuring Patient is resting comfortably in room in no acute distress He has colitis with blood in his stool which indicates necessity for antibiotics at this time Stool cultures pending Azithromycin 500 mg Yogurt daily while on antibiotics Will need colonoscopy if persistent symptoms We discussed admission to the hospital, patient has declined at this time and prefers discharge home He feels confident that he can take antibiotics and to return immediately should he have any worsening complaints Hemodynamically stable HPI General Date/Time Provider Initiated Documentation: 03/15/22 09:03. HPI Narrative: 66-year-old gentleman presents with diarrhea, nausea, and left lower quadrant pain. Denies any vomiting or epigastric pain. Drinks alcohol regularly, reports approximately 9-10 shots daily. Denies prior history of withdrawals. Denies any history of nonsteroidals. States that he was having diarrhea initially but then started having blood in his stool. Denies any known sick contacts or spoiled food. Denies any recent camping. Denies any fever or chills. Denies any recurrent episodes of syncope. Able to tolerate p.o. at this time. Presents secondary to persistent blood in stool. Describes about as bright red. Denies any urinary symptoms. Able to tolerate p.o. today. Patient reports his pain is mildly improved today. Denies recent antibiotics. Related Data Home Medications Medication Instructions Recorded Confirmed ibuprofen 200 mg tablet (Advil) 800 mg PO BID PRN 11/30/18 03/15/22 imipramine HCl 50 mg tablet 100 mg PO HS 11/30/18 03/15/22 lisinopril 40 mg tablet 40 mg PO DAILY 11/30/18 03/15/22 atorvastatin 10 mg tablet mg PO DAILY 03/15/22 azithromycin 500 mg tablet 500 mg PO DAILY 3 days #3 tabs 03/15/22 mirtazapine 45 mg tablet 45 mg PO DAILY 03/15/22 03/15/22 pantoprazole 40 mg tablet,delayed 40 mg PO DAILY 03/15/22 03/15/22 release (Protonix) Previous Rx's Medication Instructions Recorded azithromycin 500 mg tablet 500 mg PO DAILY 3 days #3 tabs 03/15/22 Allergies Allergy/AdvReac Type Severity Reaction Status Date / Time No Known Allergies Allergy Unverified 03/14/22 11:29 General Stated Complaint: Abd Prob AMY: 3 Review of Systems All systems reviewed & are unremarkable except as noted in HPI and below PFSH All Active Problems (Updated 03/15/22 @ 10:52 by BRYAN Herman) Near syncope (Acute) Colitis (Acute) Degenerative joint disease of right knee (Chronic) Most recent Depo-Medrol injection: 01/01/2022 Reports history of Depo-Medrol as well as viscosupplementation - [facility]; last injection 08/25/2021 Medical History (Updated 03/15/22 @ 10:52 by BRYAN Herman) Anxiety Hypertension Prostate cancer Surgical History H/O hemorrhoidectomy History of arthroscopy of knee History of facial surgery History of prostatectomy Social History Smoking/Tobacco Use Status: Former Tobacco Use Smoking risk assessment performed?: Yes Alcohol Intake: current Alcohol Intake frequency: a few times a week Substance use type: does not use Details: quit smoking 40+ years ago Do you feel safe at home: Yes Do you feel safe in your relationship?: Yes Exam Const General: cooperative, comfortable and no acute distress HENMT Mouth: oral mucosae normal Eyes Sclera: sclerae normal Resp Effort & Inspection: normal respiratory effort Cardio Rate: regular rate Rhythm: regular rhythm GI Other: Left lower quadrant tenderness, no rebound or guarding Skin General skin exam: no rashes or lesions noted Neuro General: patient alert and patient oriented x3 Course Vital Signs Vital signs: Vital Signs Temperature 37.2 C 03/15/22 09:04 Pulse 97 H 03/15/22 09:04 Respiratory Rate 18 03/15/22 09:04 Blood Pressure 159/89 H 03/15/22 09:04 Pulse Oximetry 99 03/15/22 09:04 Temperature 37.2 C 03/15/22 09:04 Temperature Source Skin 03/15/22 09:04 Pulse 97 H 03/15/22 09:04 Respiratory Rate 18 03/15/22 09:04 Respiratory Effort Non-Labored 03/15/22 09:11 Blood Pressure 159/89 H 03/15/22 09:04 Blood Pressure Position Sitting 03/15/22 09:04 Pulse Oximetry 99 03/15/22 09:04 Oxygen Delivery Method Room Air 03/15/22 09:04 Oxygen Flow Rate 0 03/15/22 09:04 Pain Level 1 03/15/22 09:04 Lab/Test Results Lab/Test Results: Laboratory Tests Range/Units 03/15/22 03/15/22 09:20 09:20 WBC (4.4-10.8) 10^3/uL 5.99 RBC (4.36-5.78) 10^6/uL 4.42 Hgb (13.5-17.5) g/dL 13.5 Hct (40.0-50.0) % 41.3 MCV (80-95) fL 93 MCH (27.0-33.0) pg 30.5 MCHC (32.0-36.0) % 32.7 RDW (11.8-14.1) % 13.2 Plt Count (130-400) 10^3/uL 162 MPV (8.0-11.0) fL 9.4 Immature Gran % 0.3 Neutrophils % 65.9 Lymphocytes % 20.0 Monocytes % 9.8 Eosinophils % 2.7 Basophils % 1.3 Nucleated RBC % (0.0-0.3) % 0.0 Absolute Neutrophils (1.2-6.7) 10^3/uL 3.94 Absolute Lymphocytes (1.2-3.4) 10^3/uL 1.20 Absolute Monocytes (0.1-0.8) 10^3/uL 0.59 Absolute Eosinophils (0.0-0.7) 10^3/uL 0.16 Absolute Basophils (0.0-0.2) 10^3/uL 0.08 Sodium (136-145) mmol/L 139 Potassium (3.5-5.1) mmol/L 3.9 Chloride (98-107) mmol/L 105 Carbon Dioxide (21.0-32.0) mmol/L 24.7 Anion Gap (3-11) mmol/L 9.3 BUN (7-18) mg/dL 23 H Creatinine (0.70-1.30) mg/dL 1.2 Estimated GFR/1.73 m2 (mL/min/1.73m2) >= 60.00 Glucose (74-106) mg/dL 95 Calcium (8.5-10.1) mg/dL 8.7 Total Bilirubin (0.2-1.0) mg/dL 0.5 AST (15-37) U/L 22 ALT (16-63) U/L 34 Alkaline Phosphatase (46-116) U/L 70 Total Protein (6.4-8.2) g/dL 6.7 Albumin (3.4-5.0) g/dL 3.9 Lipase (73-393) U/L 58 PAWSS Have you Been Recently Intoxicated or Drunk Within the Last 30 days?: Yes Have you Ever Experienced Previous Episodes of Alcohol Withdrawal?: No Have you ever Experienced Withdrawal Seizures?: No Have you ever Experienced Delirium Tremens(DT)s?: No Have you ever undergone Alcohol Rehabilitation Treatment (i.e, inpt ot outpatient treatment programs)?: No Have you ever Experienced Blackouts?: No Have you ever Combined Alcohol with other Downers within the last 90 days?: No Have you ever Combined Alcohol with any other Substance of Abuse during the last 90 days?: No Positive Blood Alcohol level on Presentation? [PCS.BAL]: No Evidence of Increased Autonomic Activity (i.e. HR>120, tremor, sweating, agitation, nausea)?: No Result: 1
== END 2022-03-15 11:01 | disposition home or self-care (01) ==
PROVIDERS: Emergency Provider Physician Assistant; PCP Nurse Practitioner
DX: K52.9 Noninfective gastroenteritis and colitis, unspecified (principal); I10 Essential (primary) hypertension; Z87.891 Personal history of nicotine dependence
CPT/HCPCS: 80053; 83690; 87505; 96360; 99284; 74176; 85025

== ENCOUNTER 2023-01-07 08:40 | Outpatient (CLI) | payer BC, SELFPAY ==
--- NOTE | 2023-01-07 08:15 | DI.RAD_ITS ---
Exam(s) XR KNEE LT 3V AP,LAT,AMARA EXAM: XR KNEE LT 3V AP,LAT,AMARA CLINICAL HISTORY: left knee pain. TECHNIQUE: 2D digital imaging was performed of the left knee. Three images were obtained. AP, late ral and PA tunnel views were obtained. COMPARISON: There are no priors for comparison. FINDINGS: BONES: No acute fracture is present. No bony destructive lesion is seen. JOINTS: There is narrowing of the medial femoral tibial joint space. There is mild spurring of the p osterior patella. Chondrocalcinosis is seen in the femoral tibial joint. There is a small joint eff usion. SOFT TISSUE: Normal. IMPRESSION: 1. Mild degenerative changes of the left knee. 2. Chondrocalcinosis is present which can be seen with CPPD arthropathy. DATA REPOSITORY: RADIATION DOSE DELIVERED:
== END 2023-01-07 08:41 | disposition home or self-care (01) ==
LOC: DIORS 08:41
PROVIDERS: PCP Family Medicine; Referring Provider Family Medicine; Visit Provider Physician Assistant
DX: M25.562 Pain in left knee (principal); Z98.890 Other specified postprocedural states; M11.162 Familial chondrocalcinosis, left knee
CPT/HCPCS: 73562

== ENCOUNTER 2024-07-06 21:24 | Emergency (ER) | payer BC, SELFPAY ==
[2024-07-06] VITALS (20 sets, daily range): BP systolic 117–164; BP diastolic 64–82; PULSE 79–93; RESP 13–21; TEMP 36.6; O2SAT 93–97
--- NOTE | 2024-07-06 21:30 | RT.EKG_ITS ---
APPROVED REPORT Exam: Resting ECG Reason for Exam: Dizzy 68 y/o Patient Location: E HR:82 bpm ECG Measurements Heart Rate 82 AXIS NV 172 P 33 QRSd 104 QRS -26 QT 388 T 17 QTc 453 Conclusion Sinus rhythm 82 normal axis no stemi
[2024-07-06 22:24] LABS: Abs Immature Grans 0.01 10^3/uL (0.0-0.06); Absolute Basophil Count 0.08 10^3/uL (0.0-0.2); Absolute Eosinophil Count 0.24 10^3/uL (0.0-0.7); Absolute Lymphocyte Count 1.77 10^3/uL (1.2-3.4); Absolute Neutrophil Count 4.81 10^3/uL (1.2-6.7); HCT 40.2 % (40.0-50.0); HGB 12.8 g/dL (13.5-17.5); Immature Grans % 0.1 %; Lymphocytes % 22.4 %; MCHC 31.8 % (32.0-36.0); MCV 94 fL (80-95); MPV 9.7 fL (8.0-11.0); Monocytes % 12.6 %; Neutrophils % 60.9 %; Platelet Count 181 10^3/uL (130-400); RBC 4.27 10^6/uL (4.36-5.78); RDW 13.9 % (11.8-14.1); RDW-SD 48.3 fL; WBC 7.91 10^3/uL (4.4-10.8)
[2024-07-06 22:40] LABS: PTT Activated 25.9 sec (23.6-32.8); Prothrombin Time 9.7 sec (9.1-11.1)
[2024-07-06 22:52] LABS: ALT 25 U/L (16-63); AST 19 U/L (15-37); Albumin 3.6 g/dL (3.4-5.0); Alkaline Phosphatase 91 U/L (46-116); Anion Gap 6.9 mmol/L (3-11); BUN 32 mg/dL (7-18); Bilirubin, Total 0.21 mg/dL (0.2-1.0); CO2 27.1 mmol/L (21.0-32.0); CREATININE 1.7 mg/dL (0.70-1.30); Chloride 108 mmol/L (98-107); Estimated GFR 43.64 (mL/min/1.73m2); Glucose 108 mg/dL (74-106); Magnesium 1.8 mg/dL (1.8-2.4); Potassium 4.2 mmol/L (3.5-5.1); Sodium 142 mmol/L (136-145); TSH 3.06 uIU/mL (0.36-3.74); Total Protein 6.4 g/dL (6.4-8.2); Troponin I 10 ng/L (<or=76)
[2024-07-06 22:53] LABS: NT-proBNP 56 pg/mL (<300)
[2024-07-06 23:14] LABS: D-Dimer 575 ng/mlFEU (<500)
[2024-07-06 23:14] LABS: Bilirubin Negative (Negative); Blood Negative (Negative); Clarity Clear (Clear); Glucose Negative (Negative); Ketones Negative (Negative); Leukocyte Esterase Negative (Negative); Nitrite Negative (Negative); Specific Gravity 1.025 (1.005-1.025); Urobilinogen 0.2 mg/dL (Up to 0.2)
--- NOTE | 2024-07-06 23:15 | DI.CT_ITS ---
Exam(s) CT CHEST PE CTA EXAM: CT CHEST PE CTA CLINICAL HISTORY: lightheaded, +dimer. TECHNIQUE: Imaging Protocol: CT angiography of the chest was performed using pulmonary embolus stacia col. Multi planar reconstructions were performed. CONTRAST MATERIAL: Intravenous: Omnipaque 350 Contrast volume: 100 cc COMPARISON: CR XR CHEST 2V PA LATERAL from 03/14/2022 FINDINGS: CHEST: PULMONARY ARTERIES: There are no intraluminal filling defects to suggest acute pulmonary emboli. LUNGS: There are no infiltrates nor evidence of pulmonary infarction.. There are no pleural effusions . There is a 4 millimeter pleural base nodule in lateral segment of the right middle lobe. There is also a 6 mm pleural base nodule laterally in the right upper lobe. No significant nodules in the le ft lung. No pleural effusions MEDIASTINUM: There is no hilar nor mediastinal adenopathy. Visualized thyroid unremarkable. CARDIAC: Heart size is upper normal. There is no pericardial effusion.Diameter of the ascending thor acic aorta is enlarged, measuring 4 cm. The diameter of the aortic arch is enlarged measuring 3.4 cm . Diameter of the proximal descending thoracic aorta is enlarged, measuring 3.7 cm. Diameter of the mid-descending thoracic aorta is enlarged measuring 3 cm. There is no evidence of aortic dissection . There is no significant shift of the interventricular septum. PARTIALLY VISUALIZED UPPERMOST ABDOMEN: Cholelithiasis evident. No adrenal masses. No splenomegaly. OSSEOUS: No significant osseous lesions.. IMPRESSION: 1. No evidence of acute pulmonary emboli. No evidence of pulmonary infarction.No pleural effusions. 2. There is a 4 millimeter nodule in the right middle lobe and a 6 millimeter nodule in the periphera l aspect of the right upper lobe. As per Fleischner society 2017 guidelines for follow-up and management of pulmonary nodules: 4 patien t is at low risk (minimal or absent history of smoking and other known risk factors) no retain follow -up recommended. For high risk patients (history of smoking or other known risk factors), recommend CT scan at 12 months. 3. Cholelithiasis noted. RADIATION DOSE DELIVERED: 126.32mGy.cm Total DLP DATA REPOSITORY: All CT scans at this facility are submitted to the National Radiology Data Registry (NRDR) Dose Index Registry (DIR) with the [employer] ([employer]). RADIATION OPTIMIZATION: All CT scans at this facility use at least one of these dose optimization te chniques: automated exposure control; mA and/or kV adjustment per patient size (includes targeted exa ms where dose is matched to clinical indication); or iterative reconstruction.
--- NOTE | 2024-07-06 23:15 | ED.GENADUL_ITS ---
Discharge Plan Disposition Patient Disposition: Home Condition: Good Discharge Details Clinical Impression: Orthostatic hypotension Primary Care Provider: Berna Light ED Provider: Shannan Manuel Home Meds and New Rx's Prescriptions: Continued atorvastatin 40 mg tablet 40 mg PO DAILY mirtazapine 15 mg tablet 15 mg PO DAILY imipramine HCl 50 mg tablet 50 mg PO QHS amlodipine 10 mg tablet 10 mg PO DAILY meloxicam 15 mg tablet 15 mg PO DAILY Qty: 30 3RF colestipol 1 gram tablet 1 g PO BID aspirin 81 mg capsule 81 mg PO DAILY lisinopril 40 mg Tablet 40 mg PO DAILY pantoprazole [Protonix] 40 mg Tablet,Delayed Release (Dr/Ec) 40 mg PO DAILY Discharge Instructions Instructions: Orthostatic hypotension Additional Instructions: -Drink plenty of fluids. -Return to the emergency department for new or worsening symptoms including chest pain, shortness of breath, black stool, blood in your stool, abdominal pain, passing out, or if your lightheadedness returns. -Call your primary care doctor today to schedule an appointment for within the next 48 hours to followup on your visit here. At that visit mention that your CT scan showed an incidental nodule on your lung. They may wish to repeat a CT scan at some point. More information is below. 4 mm right middle lobe nodule. As per Fleischner Society 2017 guidelines for follow-up and management of pulmonary nodules: For patients at low risk (minimal or absent history of smoking and of other known risk factors), no routine follow-up. For patient at high risk (history of smoking or of other known risk factors), recommend optional CT at 12 months. HPI General Mode of arrival: ambulatory . Date/Time Provider Initiated Documentation: 07/06/24 22:00 . Limitations to Documentation: no limitations . Information obtained by: patient . HPI Narrative: 68yo M presenting wtih lightheadedness since around 8pm. First noticed when he stood up quickly from a chair; improved somewhat but is still present, notices it most when he is up and walking or if he changes position from sitting to standing. Had similar symptoms months ago after an episode of colitis. No abdominal pain, diarrhea, blood stool, dark stool, nasuea, or vomiting. No chest pain, shortness of breath, or syncope. No headache, numbness, tingling, weakness, vision changes, or vertigo. No sick contacts. Thinks he may have not had much to drink today. Otherwise in his usual state of health. Related Data Home Medications ?Medication ?Instructions ?Recorded ?Confirmed lisinopril 40 mg tablet 40 mg PO DAILY 11/30/18 07/06/24 pantoprazole 40 mg tablet,delayed 40 mg PO DAILY 03/15/22 07/06/24 release (Protonix) amlodipine 10 mg tablet 10 mg PO DAILY 07/18/23 07/06/24 atorvastatin 40 mg tablet 40 mg PO DAILY 01/07/24 07/06/24 mirtazapine 15 mg tablet 15 mg PO DAILY 01/07/24 07/06/24 imipramine HCl 50 mg tablet 50 mg PO QHS 01/27/24 07/06/24 meloxicam 15 mg tablet 15 mg PO DAILY #30 tabs 06/25/24 07/06/24 aspirin 81 mg capsule 81 mg PO DAILY 07/06/24 07/06/24 colestipol 1 gram tablet 1 g PO BID 07/06/24 07/06/24 Previous Rx's ?Medication ?Instructions ?Recorded meloxicam 15 mg tablet 15 mg PO DAILY #30 tabs 06/25/24 Allergies Allergy/AdvReac Type Severity Reaction Status Date / Time levofloxacin (From Levaquin) Allergy Unknown Unknown Verified 07/06/24 21:49 General Stated Complaint: Dizzy/Sync AMY: 3 Review of Systems Narrative: see HPI Exam Narrative Exam Narrative: General: Alert, well appearing, well nourished, in no acute distress. Head: Normocephalic, atraumatic Neck: Trachea midline, ?Neck supple. ENT: ?MMM.? No oropharygeal lesions or exudate. Cardiac: ?RRR, no murmurs appreciated Resp: No respiratory distress. CTAB. Abd: ?Soft, non-distended, nontender : ?No suprapubic tenderness. Extremities: ?No deformities.? No peripheral edema. Neuro: ? GCS 15.? PERRL.? EOMI.? Fluent speech, no dysarthria. Motor- 5/5 strength symmetric bilateral upper and lower extremities including shoulder abductors/adductors, elbow flexors/extensors, wrist flexors/extensors, finger abductors/adductors, hipflexors/extensors, knee flexors/extensors, ankle dorsiflexors and planter flexors. Sensation- ?Intact to light touch and symmetric multiple dermatomes including upper and lower extremities Coordination- No dysmetria on finger to nose Gait/station: ?Normal stance.? No truncal ataxia. Steady gait with equal normal steps CRANIAL NERVES: II: Pupils equal and reactive, III, IV, : EOM intact, no gaze preference or deviation, no nystagmus. V: normal sensation in V1, V2, and V3 segments bilaterally VII: no asymmetry, no nasolabial fold flattening VIII: normal hearing to speech IX, X: normal palatal elevation, no uvular deviation XI: 5/5 head turn and 5/5 shoulder shrug bilaterally XII: midline tongue protrusion Course Vital Signs Vital signs: Vital Signs Temperature 36.6 C 07/06/24 21:34 Pulse 84 07/06/24 21:34 Respiratory Rate 14 07/06/24 21:34 Blood Pressure 164/78 H 07/06/24 21:34 Pulse Oximetry 96 07/06/24 21:34 Temperature 36.6 C 07/06/24 21:34 Temperature Source Temporal Artery Scan 07/06/24 21:34 Pulse 79 07/06/24 22:44 Pulse 93 H 07/06/24 22:46 Respiratory Rate 19 07/06/24 22:46 Respiratory Effort Normal, Non-Labored 07/06/24 21:54 Respiratory Depth Normal 07/06/24 21:54 Respiratory Pattern Normal 07/06/24 21:54 Blood Pressure 147/71 H 07/06/24 22:44 Blood Pressure Mean 92 07/06/24 22:41 Blood Pressure Position Supine 07/06/24 21:34 Pulse Oximetry 95 07/06/24 22:40 Oxygen Delivery Method Room Air 07/06/24 21:34 Oxygen Flow Rate 0 07/06/24 21:34 Lab/Test Results Lab/Test Results: Laboratory Tests Range/Units 07/06/24 07/06/24 22:10 22:45 WBC (4.4-10.8) 10^3/uL 7.91 RBC (4.36-5.78) 10^6/uL 4.27 L Hgb (13.5-17.5) g/dL 12.8 L Hct (40.0-50.0) % 40.2 MCV (80-95) fL 94 MCH (27.0-33.0) pg 30.0 MCHC (32.0-36.0) % 31.8 L RDW (11.8-14.1) % 13.9 Plt Count (130-400) 10^3/uL 181 MPV (8.0-11.0) fL 9.7 Immature Gran % % 0.1 Neutrophils % % 60.9 Lymphocytes % % 22.4 Monocytes % % 12.6 Eosinophils % % 3.0 Basophils % % 1.0 Nucleated RBC % (0.0-0.3) % 0.0 Absolute Neutrophils (1.2-6.7) 10^3/uL 4.81 Absolute Lymphocytes (1.2-3.4) 10^3/uL 1.77 Absolute Monocytes (0.1-0.8) 10^3/uL 1.00 H Absolute Eosinophils (0.0-0.7) 10^3/uL 0.24 Absolute Basophils (0.0-0.2) 10^3/uL 0.08 PT (9.1-11.1) sec 9.7 INR (0.9-1.1) 1.0 APTT (23.6-32.8) sec 25.9 D-Dimer (<500) ng/mlFEU 575 H Sodium (136-145) mmol/L 142 Potassium (3.5-5.1) mmol/L 4.2 Chloride (98-107) mmol/L 108 H Carbon Dioxide (21.0-32.0) mmol/L 27.1 Anion Gap (3-11) mmol/L 6.9 BUN (7-18) mg/dL 32 H Creatinine (0.70-1.30) mg/dL 1.7 H Est GFR (CKD-EPI 2020) (mL/min/1.73m2) 43.64 Glucose (74-106) mg/dL 108 H Calcium (8.5-10.1) mg/dL 9.0 Magnesium (1.8-2.4) mg/dL 1.8 Total Bilirubin (0.2-1.0) mg/dL 0.21 AST (15-37) U/L 19 ALT (16-63) U/L 25 Alkaline Phosphatase (46-116) U/L 91 Troponin I (<or=76) ng/L 10 NT-Pro-B Natriuret Pep (<300) pg/mL 56 Total Protein (6.4-8.2) g/dL 6.4 Albumin (3.4-5.0) g/dL 3.6 TSH (0.36-3.74) uIU/mL 3.06 Urine Color (Yellow) Yellow Urine Clarity (Clear) Clear Urine pH (5-8) 6.0 Ur Specific [place] (1.005-1.025) 1.025 Urine Protein (Neg-Trace) mg/dL Negative Urine Ketones (Negative) mg/dL Negative Urine Blood (Negative) Negative Urine Nitrite (Negative) Negative Urine Bilirubin (Negative) Negative Urine Urobilinogen (Up to 0.2) mg/dL 0.2 Ur Leukocyte Esterase (Negative) Negative Urine Glucose (Negative) mg/dL Negative Medical Decision Making 68yo M presenting wtih lightheadedness since around 8pm, more pronounced when ambulating or first getting up. No associated symptoms. Thinks may have not had much to drink today, worried he may be dehydrated. Vital signs reassuring on arrival, benign physical exam. No diarrhea, bloody stool, or abdominal tenderness to suggest GI bleed. No neurologic signs or symptoms to suggest CVA/SAH. Would not get CT imaging. Will evaluate for life threatening etiologies of pre-syncope. -EKG on arrival NSR, appropriate intervals, no ST segment or T wave abnormalities to suggest occlusive MN. -Orthostatic vital signs + and patient symptomatic with moving from supine to sitting; will give 1L IVFB. -Labs reviewed as below, CBC with no leukoctysois, mild anemia at 12.8 (baseline appears to be mid-13 on [facility] record review), CMP with no actionable abnormalities, Cr mildly elevated at 1.7 (from baseline ~1.2) possibly consistent with hypovolemia, coags normal, TSH normal, BNP normal, troponin negative x 3 (would not further pursue ACS), UA not infected and no hematuria. Dimer slightly elevated at 575 so will get CTA. -CTA independently reviewed; no large saddle embolus on my view, radiology read below. Repeat orthostatic VS after IVF improved. Given additional PO fluids which he tolerated well. Repeat BMP with improving Cr. On reassessment he is feeling much improved. Ambulates without lightheadedness. Likely orthostasis 2/t mild hypovolemia. Encouraged PO hydration at home and PCP followup. Discharged home; discharge instructions and return precautions were reviewed with patient who verbalized understanding. All questions were answered and he is in full agreement with the plan. Lab Data Lab results reviewed: Yes I reviewed the patient's lab results. Labs: Laboratory Tests Range/Units 07/06/24 07/06/24 07/06/24 22:10 22:45 23:13 WBC (4.4-10.8) 10^3/uL 7.91 RBC (4.36-5.78) 10^6/uL 4.27 L Hgb (13.5-17.5) g/dL 12.8 L Hct (40.0-50.0) % 40.2 MCV (80-95) fL 94 MCH (27.0-33.0) pg 30.0 MCHC (32.0-36.0) % 31.8 L RDW (11.8-14.1) % 13.9 Plt Count (130-400) 10^3/uL 181 MPV (8.0-11.0) fL 9.7 Immature Gran % % 0.1 Neutrophils % % 60.9 Lymphocytes % % 22.4 Monocytes % % 12.6 Eosinophils % % 3.0 Basophils % % 1.0 Nucleated RBC % (0.0-0.3) % 0.0 Absolute Neutrophils (1.2-6.7) 10^3/uL 4.81 Absolute Lymphocytes (1.2-3.4) 10^3/uL 1.77 Absolute Monocytes (0.1-0.8) 10^3/uL 1.00 H Absolute Eosinophils (0.0-0.7) 10^3/uL 0.24 Absolute Basophils (0.0-0.2) 10^3/uL 0.08 PT (9.1-11.1) sec 9.7 INR (0.9-1.1) 1.0 APTT (23.6-32.8) sec 25.9 D-Dimer (<500) ng/mlFEU 575 H Sodium (136-145) mmol/L 142 Potassium (3.5-5.1) mmol/L 4.2 Chloride (98-107) mmol/L 108 H Carbon Dioxide (21.0-32.0) mmol/L 27.1 Anion Gap (3-11) mmol/L 6.9 BUN (7-18) mg/dL 32 H Creatinine (0.70-1.30) mg/dL 1.7 H Est GFR (CKD-EPI 2020) (mL/min/1.73m2) 43.64 Glucose (74-106) mg/dL 108 H Calcium (8.5-10.1) mg/dL 9.0 Magnesium (1.8-2.4) mg/dL 1.8 Total Bilirubin (0.2-1.0) mg/dL 0.21 AST (15-37) U/L 19 ALT (16-63) U/L 25 Alkaline Phosphatase (46-116) U/L 91 Troponin I (<or=76) ng/L 10 10 NT-Pro-B Natriuret Pep (<300) pg/mL 56 Total Protein (6.4-8.2) g/dL 6.4 Albumin (3.4-5.0) g/dL 3.6 TSH (0.36-3.74) uIU/mL 3.06 Urine Color (Yellow) Yellow Urine Clarity (Clear) Clear Urine pH (5-8) 6.0 Ur Specific [place] (1.005-1.025) 1.025 Urine Protein (Neg-Trace) mg/dL Negative Urine Ketones (Negative) mg/dL Negative Urine Blood (Negative) Negative Urine Nitrite (Negative) Negative Urine Bilirubin (Negative) Negative Urine Urobilinogen (Up to 0.2) mg/dL 0.2 Ur Leukocyte Esterase (Negative) Negative Urine Glucose (Negative) mg/dL Negative Range/Units 07/07/24 01:04 WBC (4.4-10.8) 10^3/uL RBC (4.36-5.78) 10^6/uL Hgb (13.5-17.5) g/dL Hct (40.0-50.0) % MCV (80-95) fL MCH (27.0-33.0) pg MCHC (32.0-36.0) % RDW (11.8-14.1) % Plt Count (130-400) 10^3/uL MPV (8.0-11.0) fL Immature Gran % % Neutrophils % % Lymphocytes % % Monocytes % % Eosinophils % % Basophils % % Nucleated RBC % (0.0-0.3) % Absolute Neutrophils (1.2-6.7) 10^3/uL Absolute Lymphocytes (1.2-3.4) 10^3/uL Absolute Monocytes (0.1-0.8) 10^3/uL Absolute Eosinophils (0.0-0.7) 10^3/uL Absolute Basophils (0.0-0.2) 10^3/uL PT (9.1-11.1) sec INR (0.9-1.1) APTT (23.6-32.8) sec D-Dimer (<500) ng/mlFEU Sodium (136-145) mmol/L 142 Potassium (3.5-5.1) mmol/L 3.8 Chloride (98-107) mmol/L 110 H Carbon Dioxide (21.0-32.0) mmol/L 25.1 Anion Gap (3-11) mmol/L 6.9 BUN (7-18) mg/dL 31 H Creatinine (0.70-1.30) mg/dL 1.4 H Est GFR (CKD-EPI 2020) (mL/min/1.73m2) 55.09 Glucose (74-106) mg/dL 121 H Calcium (8.5-10.1) mg/dL 8.4 L Magnesium (1.8-2.4) mg/dL Total Bilirubin (0.2-1.0) mg/dL AST (15-37) U/L ALT (16-63) U/L Alkaline Phosphatase (46-116) U/L Troponin I (<or=76) ng/L 9 NT-Pro-B Natriuret Pep (<300) pg/mL Total Protein (6.4-8.2) g/dL Albumin (3.4-5.0) g/dL TSH (0.36-3.74) uIU/mL Urine Color (Yellow) Urine Clarity (Clear) Urine pH (5-8) Ur Specific [place] (1.005-1.025) Urine Protein (Neg-Trace) mg/dL Urine Ketones (Negative) mg/dL Urine Blood (Negative) Urine Nitrite (Negative) Urine Bilirubin (Negative) Urine Urobilinogen (Up to 0.2) mg/dL Ur Leukocyte Esterase (Negative) Urine Glucose (Negative) mg/dL Quality:SDOH Health Related Social Needs: No Data to Display PFSH All Active Problems (Updated 07/07/24 @ 01:39 by Shannan Manuel MD) Orthostatic hypotension (Acute) Pain in left foot (Acute) Facial basal cell cancer (Acute) nose Acquired trigger finger (Acute) Ingrowing nail, left great toe (Acute) Essential hypertension (Acute) Left knee DJD (Chronic) Depo-medrol injection: 04/27/24; 01/23/24; 04/15/23; 01/07/23 Degenerative joint disease of right knee (Chronic) Most recent Depo-Medrol injection: 06/22/2024; 03/23/24; 12/23/2023; 09/27/23; 10/04/21; 07/05/22; 04/02/22; 01/01/2022 Reports history of Depo-Medrol as well as viscosupplementation X3 - [facility]; last injection 08/25/2021 Medical History Prostate cancer Anxiety Hypertension Surgical History H/O hemorrhoidectomy History of arthroscopy of knee Left knee - when ~31 yo s/p [place] debridement ~21 yo History of facial surgery History of prostatectomy Family History Father Prostate cancer Paternal Grandfather BPH (benign prostatic hyperplasia) Mother , at 87 c/o PVD intervention PVD (peripheral vascular disease) Maternal Grandfather , 46 > cause No problems noted. Brother BPH (benign prostatic hyperplasia) Brother Multiple sclerosis Sister Breast cancer Sister Lung cancer Social History Smoking/Tobacco Use Status: Former Tobacco Use Smoking risk assessment performed?: Yes Alcohol Intake: current Alcohol Intake frequency: a few times a week Substance use type: does not use Details: quit smoking 40+ years ago Do you feel safe at home: Yes Do you feel safe in your relationship?: Yes
[2024-07-06] MEDS: Omnipaque 350 MG/ML 100 ML BTL IJ (23:25)
[2024-07-06] MEDS: Normal Saline Flush 10 ML SYR IVP (23:26)
[2024-07-06] MEDS: Normal Saline - Diluent 50 ML VIAL IJ (23:26)
[2024-07-06 23:33] LABS: Troponin I 10 ng/L (<or=76)
[2024-07-07] VITALS (21 sets, daily range): BP systolic 137–159; BP diastolic 63–78; PULSE 80–91; RESP 12–21; O2SAT 94–98
[2024-07-07] MEDS: Normal Saline 1,000 ML 1000 ML IV (00:04)
[2024-07-07 01:20] LABS: Anion Gap 6.9 mmol/L (3-11); BUN 31 mg/dL (7-18); CO2 25.1 mmol/L (21.0-32.0); CREATININE 1.4 mg/dL (0.70-1.30); Calcium 8.4 mg/dL (8.5-10.1); Chloride 110 mmol/L (98-107); Estimated GFR 55.09 (mL/min/1.73m2); Glucose 121 mg/dL (74-106); Potassium 3.8 mmol/L (3.5-5.1); Sodium 142 mmol/L (136-145)
[2024-07-07 01:29] LABS: Troponin I 9 ng/L (<or=76)
--- NOTE | 2024-07-07 01:35 | DI.VRAD_ITS ---
PROCEDURE INFORMATION: Exam: CTA Chest With Contrast Exam date and time: 07/06/2024 11:23 PM Age: 68 years old Clinical indication: Abnormal findings; Abnormal diagnostic tests; Patient HX: Lightheaded, elevated d-dimer TECHNIQUE: Imaging protocol: Computed tomographic angiography of the chest with contrast. Exam focused on the arteries. 3D rendering (Not supervised by radiologist): MIP and/or 3D reconstructed images were created by the technologist. Radiation optimization: All CT scans at this facility use at least one of these dose optimization techniques: automated exposure control; mA and/or kV adjustment per patient size (includes targeted exams where dose is matched to clinical indication); or iterative reconstruction. Contrast material: OMNIPAQUE 350; Contrast volume: 100 ml; Contrast route: INTRAVENOUS (IV); COMPARISON: CR XR CHEST 2V PA LATERAL 03/14/2022 1:02 PM FINDINGS: Pulmonary arteries: Normal. No pulmonary emboli. Aorta: Unremarkable. No aortic aneurysm. No aortic dissection. Lungs: No acute pulmonary infiltrate. 4 mm right middle lobe nodule. Pleural spaces: Unremarkable. No pneumothorax. No pleural effusion. Heart: Unremarkable. No cardiomegaly. No pericardial effusion. Lymph nodes: Unremarkable. No enlarged lymph nodes. Bones/joints: Unremarkable. No acute fracture. Soft tissues: Unremarkable. IMPRESSION: 1. No acute findings. 2. 4 mm right middle lobe nodule. As per Fleischner Society 2017 guidelines for follow-up and management of pulmonary nodules: For patients at low risk (minimal or absent history of smoking and of other known risk factors), no routine follow-up. For patient at high risk (history of smoking or of other known risk factors), recommend optional CT at 12 months. Dictated and Authenticated by: Jefferson Lugo MD. Ordering:ALEXA Campbell MD
== END 2024-07-07 02:00 | disposition home or self-care (01) ==
PROVIDERS: Emergency Provider Student in an Organized Health Care Education/Training Program; PCP Family Medicine
DX: I95.1 Orthostatic hypotension; Z79.82 Long term (current) use of aspirin; Z79.899 Other long term (current) drug therapy; I10 Essential (primary) hypertension; R91.1 Solitary pulmonary nodule
CPT/HCPCS: 71275; 80048; 80053; 93005; 96360; 99285; 81003; 83735; 83880; 84443; 84484; 85025; 85379; 85610; 85730; 93010; J3490

== ENCOUNTER 2024-10-07 15:21 | Emergency (ER) | payer BC, SELFPAY ==
[2024-10-07 15:24] VITALS: BP 146/83; PULSE 100; RESP 18; TEMP 36.6; O2SAT 97
--- NOTE | 2024-10-07 15:30 | DI.RAD_ITS ---
Exam(s) XR KNEE RT 3V AP,LAT,AMARA EXAM: XR KNEE RT 3V AP,LAT,AMARA CLINICAL HISTORY: Bilateral knee pain. TECHNIQUE: 2D digital imaging was performed. COMPARISON: CR XR KNEE LT 3V AP,LAT,AMARA from 01/07/2023 FINDINGS: 3 views No evidence of acute fracture nor prominent joint effusion. There are degenerative changes in the medial compartment with moderate narrowing of the medial compar tment evident and small marginal osteophytes off the outer aspect of the medial compartment. There a lso appears to be an element of chondrocalcinosis in the posterior aspect of the medial compartment a s best seen on the lateral view. The lateral compartment exhibits normal height. Minimal findings i n the patellofemoral compartment. Bone density normal. No osseous lesions. IMPRESSION: Medial compartment degenerative changes. DATA REPOSITORY: RADIATION DOSE DELIVERED:
--- NOTE | 2024-10-07 15:30 | DI.RAD_ITS ---
Exam(s) XR KNEE LT 3V AP,LAT,AMARA EXAM: XR KNEE LT 3V AP,LAT,AMARA CLINICAL HISTORY: Bilateral knee pain. TECHNIQUE: 2D digital imaging was performed. COMPARISON: CR XR KNEE RT 3V AP,LAT,AMARA from 10/07/2024 FINDINGS: 3 views No evidence of acute fracture or prominent joint effusion. There is chondrocalcinosis in both medial lateral compartments. There mild-moderate degenerative paul nges in the medial compartment. No joint space narrowing in the lateral compartment. Patellofemoral compartment exhibits minimal degenerative changes. Bone density normal. No osseous lesions IMPRESSION: Degenerative changes in the medial compartment. Chondrocalcinosis in both the lateral and medial com partments. DATA REPOSITORY: RADIATION DOSE DELIVERED:
--- NOTE | 2024-10-07 15:30 | DI.CT_ITS ---
Exam(s) CT HEAD WO EXAM: CT HEAD WO CLINICAL HISTORY: Fall head strike. TECHNIQUE: Imaging Protocol: Axial computed tomography images with coronal and sagittal reformatted images were created and reviewed COMPARISON: No exams were available for comparison FINDINGS: There a surgical wire in the upper lateral wall of the left orbit. No acute fracture at this level al though there does appear to be a very minimally depressed fracture line at the level the mid left zyg omatic arch. There are no other skull fractures identified nor fluid in the visualized paranasal sin uses and mastoid air cells. Both orbits appear unremarkable. There is no evidence of intracranial hemorrhage, mass effect, or shift of midline structures. There are no extra-axial fluid collections. The ventricles are not enlarged or shifted and there is no blo od within the ventricular system nor within the basal cisterns. There is symmetrical bilateral periventricular hypodensity around the atria of both lateral ventricle s consistent with chronic small vessel disease. No evidence of acute infarct. IMPRESSION: There is a mildly depressed fracture line at the mid aspect of the left zygomatic arch. This may not be acute, given that there is no overlying soft tissue edema plus the fact that there is a surgical wire in the nearby superolateral wall of the left orbit. No evidence of intracranial hemorrhage, intra or extra-axial. Report called by myself to ER physician 10/07/2024 at 4:36 p.m. RADIATION DOSE DELIVERED: 907.99mGy.cm Total DLP DATA REPOSITORY: All CT scans at this facility are submitted to the National Radiology Data Registry (NRDR) Dose Index Registry (DIR) with the [employer] ([employer]). RADIATION OPTIMIZATION: All CT scans at this facility use at least one of these dose optimization te chniques: automated exposure control; mA and/or kV adjustment per patient size (includes targeted exa ms where dose is matched to clinical indication); or iterative reconstruction.
--- NOTE | 2024-10-07 15:34 | ED.GENADUL_ITS ---
Discharge Plan Disposition Patient Disposition: Home Discharge Details Clinical Impression: Swelling of left knee, Hx of falling Primary Care Provider: Berna Light ED Provider: Jona Portillo Home Meds and New Rx's Prescriptions: Continued atorvastatin 40 mg tablet 40 mg PO DAILY mirtazapine 15 mg tablet 15 mg PO DAILY imipramine HCl 50 mg tablet 50 mg PO QHS amlodipine 10 mg tablet 10 mg PO DAILY colestipol 1 gram tablet 1 g PO BID aspirin 81 mg capsule 81 mg PO DAILY lisinopril 40 mg Tablet 40 mg PO DAILY pantoprazole [Protonix] 40 mg Tablet,Delayed Release (Dr/Ec) 40 mg PO DAILY Discharge Instructions Additional Instructions: You are seen in the emergency department following a fall. Your x-ray showed no sign of any fractures in your knee. He had no signs of any bleeding head. Please return to the emergency department if you lose sensation in your feet or if you take any other falls. Otherwise please follow-up with your primary care provider as we discussed that she may or may not benefit from additional imaging if your symptoms do not improve with rest ice and immunization. You may bear weight on your left lower extremity using crutches. For your pain please take medications as follows: 1. Take acetaminophen (Tylenol), 1,000 mg (two 500 mg tabs) every 6 hours Discharge Data Discharge Date/Time-TO BE ENTERED AT DEPARTURE: 10/07/24 17:25 HPI General Date/Time Provider Initiated Documentation: 10/07/24 15:32 . HPI Narrative: MDM Primary survey intact. Reassuring shock index. On secondary survey patient has bilateral knee effusions left greater than right knee tenderness for which I ordered x-rays which were fortunately negative for any acute osseous abnormalities. Patient does have degenerative changes. He is able to straight leg raise so not concerned for quadriceps tendon rupture. He reports his swelling only began after his fall so I am not concerned for septic joint so I do not feel he requires IV antibiotics. He fell and struck his head so I ordered a CT scan based on his age which was negative for any acute osseous abnormalities and no signs of any intracranial hemorrhage. He he did not strike his chest and was not short of breath nor hypoxic so I did not order chest x- ray. He has been ambulatory/not suspicious for hip fracture so I did not order hip x-rays. As noted he did have a remote zygomatic left-sided injury which was repaired surgically. He had no midline cervical spinal tenderness or distracting injury to suggest benefit from CT cervical spine. He was given a knee immobilizer and crutches. He had warm well-perfused distal extremity so was not concerned for critical limb ischemia. No calf pain to suggest DVT. Soft compartments and not concern for compartment syndrome. We discussed that his symptoms should gradually improve and that he should discontinue the knee immobilizer as his symptoms improved. We discussed that he should return to the emergency department if his pain worsened if he develops any fevers or takes any other falls. He understood his return indications and was discharged with empiric trial of expectant outpatient management. HPI This is a 69-year-old male on 81 mg aspirin arrived emergency department with his son via private vehicle following a fall off of a stepladder while trying to change a light bulb in his garage. Patient reports that he was approximately 2 feet off the ground. He landed on his knees and he also hit the right side of his head. He did not lose consciousness. He denies any preceding chest pain nausea vomiting dizziness. He is not short of breath. He is not anticoagulated. He has been ambulatory since his injury. Exam General: Well-appearing in no acute distress speaking in complete sentences. Head: Normocephalic, of the right side of the patient's face that his eyebrow there is mild ecchymosis. Eye:[Pupils equal, round reactive to light.] Extraocular eye movements intact. No conjunctival injection. No scleral icterus. No proptosis. Ear, nose, mouth, throat: Grossly normal inspection. Normal voice, handling secretions normally. Neck: Trachea midline. No midline cervical spinal tenderness. Cardiovascular: Well-perfused distal extremities. Regular rate and rhythm Respiratory: Nonlabored respiration. Clear lungs bilaterally. Gastrointestinal: Nondistended abdomen. Musculoskeletal right lower extremity mild knee swelling. Full range of motion right lower extremity. Right foot warm well-perfused 2+ PT pulse. On the proximal tibia there is an approximately 3 x 2 cm superficial abrasion. Patient is able to straight leg raise on the right. Left lower extremity moderate knee swelling and lateral left knee abrasion. Patient is able to straight leg raise on the right. Left foot warm well- perfused 2+ left PT pulse. No knee instability. No femur tenderness. No tibial tenderness. Skin: Normal for age and race, grossly normal temperature and turgor. No acute rash. Neurologic: Alert and appropriate, no apparent acute deficits. GCS 15. Related Data Home Medications ?Medication ?Instructions ?Recorded ?Confirmed lisinopril 40 mg tablet 40 mg PO DAILY 11/30/18 10/07/24 pantoprazole 40 mg tablet,delayed 40 mg PO DAILY 03/15/22 10/07/24 release (Protonix) amlodipine 10 mg tablet 10 mg PO DAILY 07/18/23 10/07/24 atorvastatin 40 mg tablet 40 mg PO DAILY 01/07/24 10/07/24 mirtazapine 15 mg tablet 15 mg PO DAILY 01/07/24 10/07/24 imipramine HCl 50 mg tablet 50 mg PO QHS 01/27/24 10/07/24 aspirin 81 mg capsule 81 mg PO DAILY 07/06/24 10/07/24 colestipol 1 gram tablet 1 g PO BID 07/06/24 10/07/24 Allergies Allergy/AdvReac Type Severity Reaction Status Date / Time levofloxacin (From [facility]) Allergy Unknown Unknown Verified 10/07/24 15:30 General Stated Complaint: Fall/Non TraumaCriteria AMY: 4 Course Vital Signs Vital signs: Vital Signs Temperature 36.6 C 10/07/24 15:24 Pulse 100 H 10/07/24 15:24 Respiratory Rate 18 10/07/24 15:24 Blood Pressure 146/83 H 10/07/24 15:24 Pulse Oximetry 97 10/07/24 15:24 Temperature 36.6 C 10/07/24 15:24 Pulse 100 H 10/07/24 15:24 Respiratory Rate 18 10/07/24 15:24 Blood Pressure 146/83 H 10/07/24 15:24 Pulse Oximetry 97 10/07/24 15:24 Pain Level 7 10/07/24 15:24 Medical Decision Making Quality:SDOH Health Related Social Needs: No Data to Display PFSH All Active Problems (Updated 10/07/24 @ 16:51 by Jona Portillo MD) Hx of falling (Acute) Swelling of left knee (Acute) Pain in left foot (Acute) Facial basal cell cancer (Acute) nose Acquired trigger finger (Acute) Ingrowing nail, left great toe (Acute) Essential hypertension (Acute) Left knee DJD (Chronic) Depo-medrol injection: 04/27/24; 01/23/24; 04/15/23; 01/07/23 Degenerative joint disease of right knee (Chronic) Most recent Depo-Medrol injection: 06/22/2024; 03/23/24; 12/23/2023; 09/27/23; 10/04/21; 07/05/22; 04/02/22; 01/01/2022 Reports history of Depo-Medrol as well as viscosupplementation - [facility]; last injection 08/25/2021 Medical History Prostate cancer Anxiety Hypertension Surgical History H/O hemorrhoidectomy History of arthroscopy of knee Left knee - when ~31 yo s/p [place] debridement ~21 yo History of facial surgery History of prostatectomy Family History Father Prostate cancer Paternal Grandfather BPH (benign prostatic hyperplasia) Mother , at 87 c/o PVD intervention PVD (peripheral vascular disease) Maternal Grandfather , 46 > cause No problems noted. Brother BPH (benign prostatic hyperplasia) Brother Multiple sclerosis Sister Breast cancer Sister Lung cancer Social History Smoking/Tobacco Use Status: Former Tobacco Use Smoking risk assessment performed?: Yes Alcohol Intake: current Alcohol Intake frequency: a few times a week Substance use type: does not use Details: quit smoking 40+ years ago Housing: house Do you feel safe at home: Yes Do you feel safe in your relationship?: Yes
[2024-10-07] MEDS: Acetaminophen 500 MG TAB 1000 MG PO (15:52)
[2024-10-07 16:28] VITALS: BP 109/65; PULSE 93; RESP 14; O2SAT 96
== END 2024-10-07 17:25 | disposition home or self-care (01) ==
PROVIDERS: Emergency Provider Emergency Medicine; PCP Family Medicine
DX: M11.262 Other chondrocalcinosis, left knee (principal); M11.261 Other chondrocalcinosis, right knee; I10 Essential (primary) hypertension; Z79.82 Long term (current) use of aspirin; Z87.891 Personal history of nicotine dependence; W11.XXXA Fall on and from ladder, initial encounter; Y93.89 Activity, other specified; Y92.015 Private garage of single-family (private) house as the place of occurrence of the external cause
CPT/HCPCS: 73562; 99284; 70450

== ENCOUNTER 2025-05-31 09:43 | Emergency (ER) | payer BC, SELFPAY ==
[2025-05-31] VITALS (25 sets, daily range): BP systolic 143–169; BP diastolic 85–98; PULSE 83–100; RESP 10–26; TEMP 36; O2SAT 96–99
--- NOTE | 2025-05-31 09:47 | W.ED.GENAD ---
Discharge Plan Disposition Patient Disposition: Home Discharge Details Clinical Impression: Lightheadedness Primary Care Provider: Berna Light ED Provider: Jona Portillo Home Meds and New Rx's Prescriptions: Continued atorvastatin 40 mg tablet 40 mg PO DAILY mirtazapine 15 mg tablet 15 mg PO DAILY imipramine HCl 50 mg tablet 50 mg PO QHS amlodipine 10 mg tablet 10 mg PO DAILY meloxicam 15 mg tablet See Rx Instructions .ROUTE .COMPLEX Qty: 30 0RF Dose Instruction: TAKE ONE TABLET BY MOUTH EVERY DAY Rx Instructions: TAKE ONE TABLET BY MOUTH EVERY DAY colestipol 1 gram tablet 1 g PO BID aspirin 81 mg capsule 81 mg PO DAILY lisinopril 40 mg Tablet 40 mg PO DAILY pantoprazole [Protonix] 40 mg Tablet,Delayed Release (Dr/Ec) 40 mg PO DAILY Discharge Instructions Additional Instructions: You are seen in the emergency department for your lightheadedness. Your blood work showed no sign of damage to your heart. Your labs show that you may have been slightly dehydrated. Please return to the emergency department as we discussed if you develop chest pain nausea or vomiting that does not stop or if you have any other concerns. Otherwise please follow-up with primary care provider as needed next week. Discharge Data Discharge Date/Time-TO BE ENTERED AT DEPARTURE: 05/31/25 12:38 HPI General Date/Time Provider Initiated Documentation: 05/31/25 09:45. HPI Narrative: MDM This is a quite well-appearing afebrile and not tachycardic 69-year-old male with presyncope for which he will undergo twelve-lead ECG assessment of electrolytes and troponin and monitoring on telemetry in the emergency department. No shortness of breath to suggest PE so I did not send a D-dimer. No pain out of proportion to suggest necrotizing soft tissue infection. Soft nontender abdomen so despite history of colitis I am not suspicious for intra-abdominal infection such as diverticulitis or appendicitis or appendicitis so I did not feel patient required a CT scan. No right upper quadrant tenderness to suggest acute cholecystitis. Will assess for pancreatitis using lipase though patient lacks significant epigastric tenderness. Given prior colonoscopies and not concern for malignancy in the absence of abdominal pain and in the absence of any unintentional weight loss or fevers. Patient is neurologically intact and so I am not suspicious for acute CVA so I do not feel patient would be a TNK candidate so I did not order a CT scan. I considered posterior circulation CVA given prehospital dizziness however patient has no nystagmus and is neurologically intact so I did not applied hints exam I did not feel patient will require an MRI. No tonic-clonic activity to suggest seizure. No cough nor shortness of breath to suggest pneumonia. No rash to abdomen to suggest zoster. No dysuria or frequency to suggest UTI. No black or bloody stools to suggest GI bleed. In the absence of chest pain I was not concerned for aortic dissection. Will assess for dysrhythmia using ECG. 10:48 AM Reassuring CBC without anemia thrombocytopenia normal leukocytosis. ECG shows sinus rhythm at a rate of 84. Left axis deviation. DE with first-degree AV block. Interventricular conduction delay. QTc within normal limits. No acute injury pattern. No prior for comparison. 11:41 AM Reassuring normal lipase. TSH within normal limits. Initial reassuring troponin. Comprehensive metabolic panel showing no ALLAN. Mildly elevated BUN. Mild gap acidosis. Normal bicarbonate no hyperglycemia??not consistent with DKA. Reassuring normal magnesium. 1225 p.m. I met with the patient. He is feeling improved. He had a reassuring evaluation. He has had no chest pain or abdominal pain. He was planning going home to rest. After the work note that he declined. We discussed that he should return to the ED if he developed any chest pain nausea or vomiting did not stop or if he had any other concerns. He understood his return indications and was discharged with an empiric trial of expectant outpatient management. HPI This is a male with a history of colitis presenting with abdominal cramping and lightheadedness. This morning, the patient experienced mild stomach cramping on his way to work, accompanied by an urge to defecate that did not result in a bowel movement. He also felt lightheaded, a symptom he has encountered before. After consuming water for about an hour, he was able to have a bowel movement, which alleviated the cramping. However, the lightheadedness persisted. Currently, he reports feeling slightly off but not severely lightheaded. He is not experiencing any chest pain or shortness of breath. His stomach discomfort has subsided, and he reports no weakness in his arms or legs. He did not lose consciousness during this episode but felt slightly dizzy. The patient has been consuming alcohol daily, with an increase in the past few days due to socializing with friends from out of town. He does not experience withdrawal symptoms such as shakes when abstaining from alcohol. He has a history of similar episodes, one of which led to a diagnosis of colitis following a CT scan. Another episode occurred a year or two ago while he was out [place], resulting in a week-long hospitalization due to significant blood loss from his intestines. He has undergone colonoscopies in the past, which have been reassuring. Exam General: Well-appearing in no acute distress speaking in complete sentences. Head: Normocephalic, atraumatic. Eye: Extraocular eye movements intact. No conjunctival injection. No scleral icterus. Ear, nose, mouth, throat: Grossly normal inspection. Normal voice, handling secretions normally. Neck: Trachea midline. Cardiovascular: Well-perfused distal extremities. Regular rate and rhythm. Respiratory: Nonlabored respiration. Clear lungs bilaterally. Gastrointestinal: Nondistended abdomen. Soft. Nontender. No rebound. No guarding. Musculoskeletal: No edema. Moving all 4 extremities spontaneously. Skin: Normal for age and race, grossly normal temperature and turgor. No acute rash. Neurologic: Alert and appropriate, no apparent acute deficits. GCS 15. Cranial nerves II through XII intact grossly. No dysmetria. No dysdiadochokinesia. No pronator drift. 5 out of 5 bilateral upper and lower extremity strength. Psychiatric: Mood and manner are appropriate. Grooming and personal hygiene are appropriate. Related Data Home Medications ?Medication ?Instructions ?Recorded ?Confirmed lisinopril 40 mg tablet 40 mg PO DAILY 11/30/18 05/31/25 pantoprazole 40 mg tablet,delayed 40 mg PO DAILY 03/15/22 05/31/25 release (Protonix) amlodipine 10 mg tablet 10 mg PO DAILY 07/18/23 05/31/25 atorvastatin 40 mg tablet 40 mg PO DAILY 01/07/24 05/31/25 mirtazapine 15 mg tablet 15 mg PO DAILY 01/07/24 05/31/25 imipramine HCl 50 mg tablet 50 mg PO QHS 01/27/24 05/31/25 aspirin 81 mg capsule 81 mg PO DAILY 07/06/24 05/31/25 colestipol 1 gram tablet 1 g PO BID 07/06/24 05/31/25 meloxicam 15 mg tablet See Rx Instructions .Route 05/03/25 05/31/25 .COMPLEX #30 tabs Previous Rx's ?Medication ?Instructions ?Recorded meloxicam 15 mg tablet See Rx Instructions .Route 05/03/25 .COMPLEX #30 tabs Allergies Allergy/AdvReac Type Severity Reaction Status Date / Time levofloxacin (From Levaquin) Allergy Unknown Unknown Verified 05/31/25 10:17 General AMY: 4 PFSH All Active Problems (Updated 05/31/25 @ 12:26 by Jona Portillo MD) Lightheadedness (Acute) Pain in left foot (Acute) Facial basal cell cancer (Acute) nose Acquired trigger finger (Acute) Ingrowing nail, left great toe (Acute) Essential hypertension (Acute) Left knee DJD (Chronic) Depo-medrol injection: 10/19/24;07/27/24; 04/27/24; 01/23/24; 04/15/23; 01/07/23 Degenerative joint disease of right knee (Chronic) Most recent Depo-Medrol injection: 06/22/2024; 03/23/24; 12/23/2023; 09/27/23; 10/04/21; 07/05/22; 04/02/22; 01/01/2022 Reports history of Depo-Medrol as well as viscosupplementation - [facility]; last injection 08/25/2021 Medical History Prostate cancer Anxiety Hypertension Surgical History H/O hemorrhoidectomy History of arthroscopy of knee Left knee - when ~31 yo s/p [place] debridement ~21 yo History of facial surgery History of prostatectomy Family History Father Prostate cancer Paternal Grandfather BPH (benign prostatic hyperplasia) Mother , at 87 c/o PVD intervention PVD (peripheral vascular disease) Maternal Grandfather , 46 > cause No problems noted. Brother BPH (benign prostatic hyperplasia) Brother Multiple sclerosis Sister Breast cancer Sister Lung cancer Social History Smoking/Tobacco Use Status: Former Tobacco Use Smoking risk assessment performed?: Yes Alcohol Intake: current Alcohol Intake frequency: a few times a week Substance use type: does not use Details: quit smoking 40+ years ago Housing: house Do you feel safe at home: Yes Do you feel safe in your relationship?: Yes
--- NOTE | 2025-05-31 10:15 | RT.EKG_ITS ---
APPROVED REPORT Exam: Resting ECG Reason for Exam: Presyncope Patient Location: E HR:84 bpm ECG Measurements Heart Rate 84 AXIS IL 200 P 36 QRSd 111 QRS -23 QT 418 T 5 QTc 495 Conclusion Sinus rhythm...normal P axis, V-rate 60- 99 Inferior infarct, old...Q >35mS, II III aVF No Occlusion VT
[2025-05-31] MEDS: Normal Saline 500 ML IV (10:26)
[2025-05-31 10:30] LABS: Abs Immature Grans 0.02 10^3/uL (0.0-0.06); HCT 43.0 % (40.0-50.0); HGB 14.1 g/dL (13.5-17.5); Immature Grans % 0.3 %; MCH 30.2 pg (27.0-33.0); MCHC 32.8 % (32.0-36.0); MCV 92 fL (80-95); MPV 10.7 fL (8.0-11.0); Platelet Count 163 10^3/uL (130-400); RBC 4.67 10^6/uL (4.36-5.78); RDW 14.1 % (11.8-14.1); RDW-SD 48.0 fL; WBC 6.48 10^3/uL (4.4-10.8)
[2025-05-31 11:05] LABS: ALT 37 U/L (16-63); AST 31 U/L (15-37); Albumin 4.4 g/dL (3.4-5.0); Alkaline Phosphatase 88 U/L (46-116); Anion Gap 12.4 mmol/L (3-11); BUN 22 mg/dL (7-18); Bilirubin, Total 0.4 mg/dL (0.2-1.0); CO2 26.6 mmol/L (21.0-32.0); Calcium 9.0 mg/dL (8.5-10.1); Chloride 103 mmol/L (98-107); Estimated GFR 73.12 (mL/min/1.73m2); Glucose 97 mg/dL (74-106); Lipase 26 U/L (<78); Magnesium 2.0 mg/dL (1.8-2.4); Potassium 3.8 mmol/L (3.5-5.1); Sodium 142 mmol/L (136-145); TSH (W/Ref FT4) 1.90 uIU/mL (0.36-3.74); Total Protein 7.2 g/dL (6.4-8.2); Troponin I 8 ng/L (<or=76)
[2025-05-31 12:07] LABS: Troponin I 8 ng/L (<or=76)
== END 2025-05-31 12:38 | disposition home or self-care (01) ==
PROVIDERS: Emergency Provider Emergency Medicine; PCP Family Medicine
DX: R42 Dizziness and giddiness (principal); I10 Essential (primary) hypertension
CPT/HCPCS: 36415; 80053; 83690; 93005; 96360; 99284; 83735; 84443; 84484; 85025; 93010; 99283

== ENCOUNTER 2025-08-18 09:33 | Emergency (ER) | payer BC, SELFPAY ==
[2025-08-18] VITALS (9 sets, daily range): BP systolic 146–167; BP diastolic 73–95; PULSE 76–88; RESP 13; TEMP 36.8; O2SAT 96–100
--- NOTE | 2025-08-18 10:15 | W.ED.GENAD ---
Discharge Plan Disposition Patient Disposition: Home Condition: Stable Discharge Details Clinical Impression: Closed fracture of phalanx of left index finger, Laceration of left index finger with damage to nail, Laceration of left middle finger with damage to nail Primary Care Provider: Berna Light ED Provider: Perfecto Woods Home Meds and New Rx's Prescriptions: Continued atorvastatin 40 mg tablet 40 mg PO DAILY mirtazapine 15 mg tablet 15 mg PO DAILY imipramine HCl 50 mg tablet 50 mg PO QHS amlodipine 10 mg tablet 10 mg PO DAILY meloxicam 15 mg tablet See Rx Instructions .ROUTE .COMPLEX Qty: 30 6RF Dose Instruction: TAKE ONE TABLET BY MOUTH EVERY DAY Rx Instructions: TAKE ONE TABLET BY MOUTH EVERY DAY colestipol 1 gram tablet 1 g PO BID aspirin 81 mg capsule 81 mg PO DAILY lisinopril 40 mg Tablet 40 mg PO DAILY pantoprazole [Protonix] 40 mg Tablet,Delayed Release (Dr/Ec) 40 mg PO DAILY Discharge Instructions Instructions: Cephalexin, Oxycodone, Finger Fracture ED, Wound Care ED, Tdap (Tetanus, Diphtheria, Pertussis) Vaccine CDC Vaccine Information Statement (VIS) Additional Instructions: You were seen in the emergency department for the complex laceration of your left index and middle fingers as well as a distal left index finger fracture. Orthopedics will follow-up with you in office for wound care, we dressed your wound with antibiotic impregnated Xeroform dressing, I am starting you on a 3-day course of cephalexin to prevent infection. You were sent home with 5 mg oxycodone tablets, please split these in half and take 1/2 tablet every 4-6 hours for breakthrough pain as needed, take 1000 mg of Tylenol every 8 hours, you can either take your prescribed meloxicam, or substitute in 400 mg of ibuprofen every 6 hours as needed. Please return for any signs of infection like increasing redness, increasing pain, red streaking up the hand, fever, nausea. Stand Alone Forms: [facility] Prescribed Opioid Consent, Portal Information Referrals: [facility] [Provider Group] Berna Light [Primary Care Provider, Medicine] Discharge Data Discharge Date/Time-TO BE ENTERED AT DEPARTURE: 08/18/25 11:27 HPI <BRYAN Jimenez - Last Filed: 08/18/25 15:24> General Date/Time Provider Initiated Documentation: 08/18/25 09:38. HPI Narrative: 70 year-old male presents to ED today by POV/ambulating with a chief complaint of L hand laceration from a table saw to L 2nd & 3rd fingers with onset just prior to arrival. Quality described as macerated lacerations to nailbed & distal L index and middle fingers- patient is R-hand dominant, no radiation to numbness, bright red spurting of blood, other injuries. Severity is described as moderate to severe. Palliating factors include direct pressure with cessation of bleeding. Provoking factors include nothing specific. Events leading up to the incident/Associated Symptoms: Tdap greater than 5 years ago. Patient not anticoagulated. Related Data Home Medications ?Medication ?Instructions ?Recorded ?Confirmed lisinopril 40 mg tablet 40 mg PO DAILY 11/30/18 09/05/25 pantoprazole 40 mg tablet,delayed 40 mg PO DAILY 03/15/22 09/05/25 release (Protonix) amlodipine 10 mg tablet 10 mg PO DAILY 07/18/23 09/05/25 atorvastatin 40 mg tablet 40 mg PO DAILY 01/07/24 09/05/25 mirtazapine 15 mg tablet 15 mg PO DAILY 01/07/24 09/05/25 imipramine HCl 50 mg tablet 50 mg PO QHS 01/27/24 09/05/25 aspirin 81 mg capsule 81 mg PO DAILY 07/06/24 09/05/25 colestipol 1 gram tablet 1 g PO BID 07/06/24 09/05/25 meloxicam 15 mg tablet See Rx Instructions .Route 06/05/25 09/05/25 .COMPLEX #30 tabs Previous Rx's ?Medication ?Instructions ?Recorded meloxicam 15 mg tablet See Rx Instructions .Route 06/05/25 .COMPLEX #30 tabs Allergies Allergy/AdvReac Type Severity Reaction Status Date / Time levofloxacin (From Levaquin) Allergy Unknown Unknown Verified 09/02/25 08:39 General Stated Complaint: Laceration AMY: 3 Review of Systems <BRYAN Jimenez - Last Filed: 08/18/25 15:24> All systems reviewed & are unremarkable except as noted in HPI and below Exam <BRYAN Jimenez - Last Filed: 08/18/25 15:24> Narrative Exam Narrative: GENERAL APPEARANCE: Well-nourished, non-toxic, awake and alert, atraumatic, no acute distress. SKIN: Warm, pink, dry, complex macerated laceration to 2nd finger of L hand- 2.5cm across distal end of finger involving nailbed, complex macerated laceration to distal end of 3rd finger of L hand on the lateral nail fold involving the nailbed, ROM intact in all fingers, sensation intact, scant oozing of blood, L radial pulse 2+ HEAD: Normocephalic, atraumatic, normal hair distribution for gender/age. EYES: Normal conjunctiva, no exudates on lids/lashes. ENT: Nares patent, no circumoral cyanosis, no facial swelling NECK: Supple, trachea midline, painless cervical ROM. LUNGS/CHEST: Non-labored respirations, normal A/P diameter, symmetrical expansion, no chest wall deformity HEART (CV/PV): Regular rate, no peripheral edema, no JVD. ABDOMEN: Soft, non-distended, no guarding. MSK: Normal ROM, no swelling/deformity to bilateral UEs or LEs, moving all extremities without weakness, no cyanosis, spine midline without tenderness, normal curvature. NEURO: Mental Status AAOx4 - alert to person, place, time, events No facial droop, no forehead involvement. Motor: No focal weakness - strength 5/5 in bilateral UEs and LEs, proximal and distal, symmetric. Sensory: sensation intact to light touch globally. Gait normal: patient ambulated without ataxia into ED room. PSYCH: euthymic, cooperative, pleasant, appropriate speech Course <BRYAN Jimenez - Last Filed: 08/18/25 15:24> Vital Signs Vital signs: Vital Signs Temperature 36.8 C 08/18/25 09:39 Pulse 88 08/18/25 09:39 Respiratory Rate 13 08/18/25 09:39 Blood Pressure 167/90 H 08/18/25 09:39 Pulse Oximetry 96 08/18/25 09:39 Temperature 36.8 C 08/18/25 09:39 Temperature Source Temporal Artery Scan 08/18/25 09:39 Pulse 84 08/18/25 09:53 Respiratory Rate 13 08/18/25 09:53 Blood Pressure 146/73 H 08/18/25 09:53 Blood Pressure Mean 97 08/18/25 09:53 Blood Pressure Position Sitting 08/18/25 09:39 Pulse Oximetry 98 08/18/25 09:53 Oxygen Delivery Method Room Air 08/18/25 09:39 Oxygen Flow Rate 0 08/18/25 09:39 Pain Level 5 08/18/25 09:46 Medical Decision Making <BRYAN Jimenez - Last Filed: 08/18/25 15:24> This dictation utilizes [id number] dictation software and may contain unedited grammatical errors. 70 year-old male presents to ED today by POV/ambulating with a chief complaint of L hand laceration from a table saw to L 2nd & 3rd fingers with onset just prior to arrival. Quality described as macerated lacerations to nailbed & distal L index and middle fingers- patient is R-hand dominant, no radiation to numbness, bright red spurting of blood, other injuries. Severity is described as moderate to severe. Palliating factors include direct pressure with cessation of bleeding. Provoking factors include nothing specific. Events leading up to the incident/Associated Symptoms: Tdap greater than 5 years ago. Patients' medical history: Hypertension. 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 Pertinent exam findings / vital signs include complex macerated laceration to 2nd finger of L hand- 2.5cm across distal end of finger involving nailbed, complex macerated laceration to distal end of 3rd finger of L hand on the lateral nail fold involving the nailbed, ROM intact in all fingers, sensation intact, scant oozing of blood, L radial pulse 2+. Differential / pathologies of concern include laceration, fracture. Diagnostic studies of: -XR L Hand - shows comminuted fracture of distal phalanx of L 2nd finger. Interventions of: -1g IV APAP, 15mg IVP ketorolac, 250mL IVF NS, 2g IV Cefazolin, 2mg morphine PRN x1. -Consulted with Orthopaedics Dr. Ceballos, recommends just healing by secondary intent- dress with xeroform and gauze. -Wound was seen by EM Attending Dr. Medeiros as well, agrees with ortho consult. ED Course/Assessment/Plan: 70-year-old male presents with a tablesaw injury to the left index and middle finger at the distal tips with nailbed involvement, the wounds are very macerated and not consistent with need for suturing, orthopedics was consulted they recommend just dressing the wounds and they will follow-up in office for healing by secondary intent with possible minor procedures at that time, the wounds were cleaned aggressively and wrapped with Xeroform dressing and gauze, updated patient's tetanus, started him on IV cefazolin while in ED and 3 days of outpatient cephalexin for infection prophylaxis as well as for 5 mg tablets of oxycodone for breakthrough pain, return criteria for any signs of infection. Findings not consistent with wound infection, suturable wounds. Disposition of laceration of left middle finger with damage to nail, laceration of left index finger with damage to nail, closed fracture of phalanx of left index finger. Patient verbalized understanding of the plan and return to ED criteria and engaged in shared decision making. Medical Records Medical records reviewed: Yes I reviewed the patient's medical records. Imaging Data Radiologic Study: Attestation: I personally reviewed and interpreted this imaging study as follows: Imaging: X-Ray Radiologist's impression: EXAM: XR HAND LT COMPLETE CLINICAL HISTORY: finger lac's. TECHNIQUE: 2D digital imaging was performed. Three views. COMPARISON: CR XR FINGER RT LITTLE from 04/18/2020 FINDINGS: BONES: There is a comminuted fracture involving the distal half of the distal phalanx of the index finger. There is overlying soft tissue defect. No bony destructive lesion is seen. JOINTS: No dislocation present. There are minimal degenerative changes of the interphalangeal joints. SOFT TISSUE: There is also soft tissue injury involving the distal aspect of the middle finger but no evidence of fracture. IMPRESSION: Comminuted fracture of the distal phalanx of the index finger. <Saurabh Medeiros MD - Last Filed: 09/08/25 07:22> Date: 08/18/25 Time: 10:45 Note: Patient was seen and evaluated with BRYAN Woods. I agree with treatment plan as discussed and documented. [facility] <BRYAN Jimenez - Last Filed: 08/18/25 15:24> All Active Problems Laceration of left middle finger with damage to nail (Acute) Laceration of left index finger with damage to nail (Acute) Closed fracture of phalanx of left index finger (Acute) Pain in left foot (Acute) Facial basal cell cancer (Acute) nose Acquired trigger finger (Acute) Ingrowing nail, left great toe (Acute) Essential hypertension (Acute) Left knee DJD (Chronic) Depo-medrol injection: 06/17/25; 10/19/24;07/27/24; 04/27/24; 01/23/24; 04/15/23; 01/07/23 Degenerative joint disease of right knee (Chronic) Most recent Depo-Medrol injection: 06/28/25; 03/29/25; 06/22/2024; 03/23/24; 12/23/2023; 09/27/23; 10/04/21; 07/05/22; 04/02/22; 01/01/2022 Reports history of Depo-Medrol as well as viscosupplementation - [facility]; last injection 08/25/2021 Medical History Prostate cancer Anxiety Hypertension Surgical History H/O hemorrhoidectomy History of arthroscopy of knee Left knee - when ~31 yo s/p [place] debridement ~21 yo History of facial surgery History of prostatectomy Family History Father Prostate cancer Paternal Grandfather BPH (benign prostatic hyperplasia) Mother , at 87 c/o PVD intervention PVD (peripheral vascular disease) Maternal Grandfather , 46 > cause No problems noted. Brother BPH (benign prostatic hyperplasia) Brother Multiple sclerosis Sister Breast cancer Sister Lung cancer Social History Smoking/Tobacco Use Status: Former Tobacco Use Smoking risk assessment performed?: Yes Alcohol Intake: current Alcohol Intake frequency: 0-2 drinks per day Substance use type: does not use Details: quit smoking 40+ years ago Housing: house Do you feel safe at home: Yes Do you feel safe in your relationship?: Yes
[2025-08-18] MEDS: MORPHine 10 MG/ML VIAL 2 MG IVP (10:32)
[2025-08-18] MEDS: Ketorolac 15 MG/ML VIAL IVP (10:32)
[2025-08-18] MEDS: ceFAZolin 2,000 MG in Normal Saline 100 ML 200 MG IVPB (10:40)
[2025-08-18] MEDS: ACETAMINOPHEN 500 MG/50 ML BAG 200 MG IVPB (10:40)
[2025-08-18] MEDS: Diph,Pertuss(Acell),Tet Vac/Pf 0.5 ML SYR IM (10:41)
[2025-08-18] MEDS: Normal Saline 250 ML IV (10:42)
[2025-08-18] MEDS: oxyCODONE 5 MG TAB 20 MG PO (11:23)
== END 2025-08-18 11:27 | disposition home or self-care (01) ==
PROVIDERS: Emergency Provider Physician Assistant; PCP Family Medicine
DX: S61.311A Laceration without foreign body of left index finger with damage to nail, initial encounter; S62.631A Displaced fracture of distal phalanx of left index finger, initial encounter for closed fracture; S61.313A Laceration without foreign body of left middle finger with damage to nail, initial encounter; Z23 Encounter for immunization; W31.2XXA Contact with powered woodworking and forming machines, initial encounter
CPT/HCPCS: 90471; 90715; 96365; 96375; 99284; 73130; J0131; J0690; J1885; J2270